=== PATIENT | male | born 1965 | race Caucasian/White ===

== ENCOUNTER 2017-01-05 06:30 | Day surgery (SDC) | payer OTHER ==
[~2017-01-05 06:30] MED LIST: Lactated Ringers 1,000 ML IV SCH; cefOXitin 2 GM in Premix Bag 1 BAG IV ONE
[2017-01-05] MEDS ORDERED: ceFAZolin 1 GM Vial ONE (07:17)
[2017-01-05] MEDS ORDERED: Bupivacaine 0.5% 10 ML SDV ONE (07:17)
--- NOTE | 2017-01-05 07:18 | PCM.PREANE ---
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 Respiratory: Reports: no symptoms Cardiovascular: Reports: no symptoms GI: Reports: no symptoms Other: Reports: none - PHYSICAL ASSESSMENT O2 Sat by Pulse Oximetry: 97 RR: 16 Vital Signs: Last Vital Signs Temp 36 C 01/05/17 06:40 Pulse 68 01/05/17 06:40 Resp 16 01/05/17 06:40 BP 119/75 01/05/17 06:40 Pulse Ox 97 01/05/17 06:40 Height: 1.75 m Weight: 72.575 kg ASA Class: 1 Mental Status: alert & oriented x3 Airway Class: Mallampati = 2 Dentition: Reports: normal dentition ROM/Head Extension: full Respiratory Status: lungs clear to auscultation bilaterally Cardiovascular Status: regular rate & rhythm, normal S1, S2, no murmur - ALLERGIES Allergies/Adverse Reactions: Allergies Allergy/AdvReac Type Severity Reaction Status Date / Time No Known Allergies Allergy Verified 12/26/16 21:20 - BLOOD Blood Available: No - ANESTHESIA PLAN Preop Beta Vivien: No Anesthesia Type Planned: general anesthesia - ACKNOWLEDGEMENTS Pt an appropriate candidate for the planned anesthesia: Yes Alternatives and risks of anesthesia discussed w pt/guardian: Yes Pt/Guardian understands and agree with anesthesia plan: Yes PreAnesthesia Questionnaire HEENT History: Reports: Impaired vision Other HEENT History: wears glasses Cardiovascular History: Reports: None Respiratory History: Reports: None Gastrointestinal History: Reports: None Genitourinary History: Reports: None Musculoskeletal History: Reports: None Neurological History: Reports: None Psychiatric History: Reports: None Endocrine/Metabolic History: Reports: None Hematologic History: Reports: None Immunologic History: Reports: None Oncologic (Cancer) History: Reports: None Dermatologic History: Reports: None - Infectious Disease History Infectious Disease History: Reports: Chicken pox, Measles, Mumps - Past Surgical History Head Surgeries/Procedures: Reports: None HEENT Surgical History: Reports: None Cardiovascular Surgical History: Reports: None Respiratory Surgical History: Reports: None GI Surgical History: Reports: None Male Surgical History: Reports: None Endocrine Surgical History: Reports: None Neurological Surgical History: Reports: C-Spine Other Neurological Surgeries/Procedures: anterior cervical disc fusion C4-C7 Musculoskeletal Surgical History: Reports: Other (see below) Other Musculoskeletal Surgeries/Procedures:: neck fusion C4-5-6-7 (ACDF) Oncologic Surgical History: Reports: None Dermatological Surgical History: Reports: None - SUBSTANCE USE Smoking Status *Q: Current Every Day Smoker Tobacco Use Within Last Twelve Months: Cigarettes Recreational Drug Use History: No - HOME MEDS Home Medications: Home Meds Multivitamin [Multivitamins] 1 tab PO DAILY 03/06/16 [History] Ondansetron HCl [Ondansetron] 4 mg PO ASDIRECTED PRN 12/31/16 [History] Ciprofloxacin HCl [Cipro] 500 mg PO BID 01/01/17 [History] Hydrocodone/Acetaminophen [Hydrocodon-Acetaminophen 5-325] 1 tab PO ASDIRECTED PRN 01/01/17 [History] - CURRENT (IN HOUSE) MEDS Current Meds: Current Medications Lactated Ringer's (Ringers, Lactated) 1,000 mls @ 125 mls/hr IV ASDIRECTED [facility] Last Admin: 01/05/17 06:42 Dose: 125 mls/hr Discontinued Medications Cefoxitin Sodium 2 gm/ Premix 50 mls @ 100 mls/hr IV ONETIME ONE Stop: 01/05/17 06:29
[2017-01-05] MEDS ORDERED: Lidocaine 2% 5 ML SDV ONE (07:25)
[2017-01-05] MEDS ORDERED: fentaNYL 250 MCG/5 ML SDV ONE (07:26)
[2017-01-05] MEDS ORDERED: Propofol 200 MG/20 ML SDV ONE ×2 (07:26→08:34)
[2017-01-05] MEDS ORDERED: fentaNYL 100 MCG/2 ML SDV ONE ×2 (07:26)
[2017-01-05] MEDS ORDERED: Midazolam 1 MG/ML 2 ML SDV ONE (07:26)
[2017-01-05] MEDS ORDERED: Neostigmine Methylsulfate 1 MG/ML 5 ML Syringe ONE (07:27)
[2017-01-05] MEDS ORDERED: Ondansetron 4 MG/2 ML SDV ONE (07:27)
[2017-01-05] MEDS ORDERED: Rocuronium 10 MG/ML 10 ML Syringe ONE (07:27)
[2017-01-05] MEDS ORDERED: Ketorolac 30 MG/ML SDV ONE (07:27)
[2017-01-05] MEDS ORDERED: HYDROmorphone 2 MG/ML Syringe IVPUSH ONE (08:30)
[2017-01-05] MEDS ORDERED: Acetaminophen/HYDROcodone 325-5 MG Tab PO PRN (09:14)
[2017-01-05] MEDS ORDERED: Morphine 10 MG/ML Syringe IVPUSH PRN (09:14)
[2017-01-05] MEDS ORDERED: Lactated Ringers 1,000 ML IV SCH (09:15)
--- NOTE | 2017-01-05 09:20 | PCM.OPNOTE ---
- General Post-Op/Procedure Note Date of Surgery/Procedure: 01/05/17 Operative Procedure(s): Laparoscopic cholecystectomy Pre Op Diagnosis: Symptomatic cholelithiasis Post-Op Diagnosis: Same Anesthesia Technique: General ET tube (ASA I) Primary Surgeon: Gamaliel Perez Drawer In Stitch Bonding Machine: Beba Chaves Fluid Replacement, Intraop: 1,300 EBL in mLs: 5 Condition: Good Free Text/Narrative:: Dictation [id number]
[2017-01-05] MEDS: fentaNYL 100 MCG/2 ML SDV IVPUSH PRN ×2 (10:00→10:05)
--- NOTE | 2017-01-05 10:13 | PCM.POSTAN ---
POST ANESTHESIA ASSESSMENT - MENTAL STATUS Mental Status: alert, oriented - RESPIRATORY Respiratory Status: respiratory rate WNL, airway patent - CARDIOVASCULAR CV Status: pulse rate WNL - GASTROINTESTINAL GI Status: no symptoms - POST OP HYDRATION Hydration Status: adequate & stable
--- NOTE | 2017-01-05 10:56 | PCM48HPAN ---
Post Anesthesia Note - EVALUATION WITHIN 48HRS OF ANESTHETIC Vital Signs in Normal Range: Yes Patient Participated in Evaluation: Yes Respiratory Function Stable: Yes Airway Patent: Yes Cardiovascular Function Stable: Yes Hydration Status Stable: Yes Pain Control Satisfactory: Yes Nausea and Vomiting Control Satisfactory: Yes Mental Status Recovered: Yes
[2017-01-05 11:03] VITALS: BP 128/76
--- NOTE | 2017-01-05 14:09 | OR ---
SURGEON: Gamaliel Perez M.D. DATE OF PROCEDURE: 01/05/2017 OPERATION PERFORMED: Laparoscopic cholecystectomy. STOCKROOM CLERK: press operator assistant: Dr. Chaves. ANESTHESIA: General endotracheal ASA CLASSIFICATION: I. PREOPERATIVE DIAGNOSIS: Symptomatic cholelithiasis. POSTOPERATIVE DIAGNOSIS: Symptomatic cholelithiasis. ESTIMATED BLOOD LOSS: 5 mL. INTRAOPERATIVE FLUID REPLACEMENT: 1300 mL of crystalloid. DESCRIPTION OF PROCEDURE: The patient was taken to the operating room and placed the on the operating table in the supine position. Time-out was called for appropriate identification of the patient and procedure. Thigh-high TEDs and sequential compression boots were placed. Following satisfactory attainment of general endotracheal anesthesia, a García catheter was placed in the patient's urinary bladder. The abdomen was prepped with DuraPrep solution and sterile drapes were applied. The skin just below the umbilicus was infiltrated with 0.5% Marcaine solution. The skin incision was made and deepened through the subcutaneous tissue, obtaining hemostasis with the use of electrocautery. The Veress needle was introduced into the peritoneal cavity. Saline drop test was positive. Carbon dioxide pneumoperitoneum was established with the relief set at 13 cm of water. Once a satisfactory pneumoperitoneum was established, 5 mm camera and port were placed through the infraumbilical incision. The patient was now positioned with his feet down and rolled to the left. Under camera vision, 12 mm subxiphoid, 5 mm midclavicular, and 5 mm anterior axillary ports were placed. Each incision had preemptively been infiltrated with 0.5% Marcaine solution. The gallbladder was grasped. Adhesions were taken down and cholecystohepatic triangle dissected free obtaining good critical view of both cystic artery and cystic duct. These structures were hemo-clipped and divided with the laparoscopic Metzenbaum scissor. The gallbladder was then dissected away from the bed using electrocautery. Once the gallbladder was amputated, this was placed in an Endopouch which was left in situ for later retrieval. The bed of the gallbladder was inspected. There was some minor oozing present and this was cauterized. No bile leak was noted. Surgicel was placed into the bed of the gallbladder, after the irrigant had been aspirated. The right hemidiaphragm was then irrigated with 250 mL of saline with 20 mL of 0.5% Marcaine solution. Following that the 12 mm subxiphoid and Endopouch containing gallbladder were removed. Under camera vision, 5 mm midclavicular and anterior axillary ports were also removed. The wounds were inspected for hemostasis and small bleeding sites were electrocoagulated. The subxiphoid and infraumbilical incisions were closed in 2 layers approximating the subcutaneous tissue with 3-0 Polysorb and then the skin with subcuticular 4-0 Monocryl. The anterior, axillary, and midclavicular incisions were closed with subcuticular 4-0 Monocryl. All incisions were Steri-Stripped and dressed with sterile Tegaderm pads. Sponge, needle, and instrument counts were all correct. The García catheter was removed prior to emergence from anesthesia. Following emergence from anesthesia and extubation, the patient was taken to recovery room in stable condition. STERLING MCMILLAN /[id number]
== END 2017-01-05 11:14 | disposition home or self-care (01) ==
LOC: MW.SDS 06:30
PROVIDERS: ATTEND Surgery
PROC: 0FT44ZZ Resection of Gallbladder, Percutaneous Endoscopic Approach (ICD-10-PCS; principal; 2017-01-05)
DX: K80.10 Calculus of gallbladder with chronic cholecystitis without obstruction (principal); F17.210 Nicotine dependence, cigarettes, uncomplicated; Z98.1 Arthrodesis status; Z98.890 Other specified postprocedural states; Z79.899 Other long term (current) drug therapy
CPT/HCPCS: 47562; 88304; J1885; J2250; J2405; J2710; J3010; J7120; 00790; J0690; J2704

== ENCOUNTER 2017-01-07 20:18 | Observation (INO) | payer OTHER ==
[2017-01-07] MEDS ORDERED: Morphine 2 MG/ML Syringe IVPUSH ONE (20:24)
[2017-01-07] MEDS ORDERED: Sodium Chloride 0.9% 10 ML Syringe FLUSH PRN (20:24)
[2017-01-07] MEDS ORDERED: Sodium Chloride 0.9% 1,000 ML IV ONE (20:24)
[2017-01-07] MEDS ORDERED: Ondansetron 4 MG/2 ML SDV IVPUSH ONE (20:24)
[2017-01-07] MEDS ORDERED: Sodium Chloride 0.9% 2.5 ML Syringe FLUSH PRN (20:24)
--- NOTE | 2017-01-07 20:28 | EDM.PDOC ---
<Miriam Farris - Last Filed: 01/07/17 22:01> ED HPI GI/ABDOMINAL - General Chief Complaint: Abdominal Pain Stated Complaint: HAD GALLBLADDER SURGERY/PAIN Time Seen by Provider: 01/07/17 20:20 Source of Information: Reports: Patient, Family History Limitations: Reports: No limitations - History of Present Illness INITIAL COMMENTS - FREE TEXT/NARRATIVE: HISTORY AND PHYSICAL: History of present illness: [Brought to the emergency room by his with complaints of upper abdominal pain. Had a cholecystectomy on January [address] Perez. Surgery went well. Patient had been recovering well at home when pain in epigastric area began suddenly 45 minutes prior to ER arrival. At home patient complained of radiation of this pain into his right shoulder and right upper back. He has not had fever or chills. Denies chest pain, shortness of breath and difficulty breathing. Has had 3 bowel movements since surgery on Thursday which have been normal. Has had no difficulty with urination. Has been eating a bland diet and gradually increasing as tolerated. Tonight he felt well and ate some fried chicken for supper.] Review of systems: As per history of present illness and below otherwise all systems reviewed and negative. Past medical history: As per history of present illness and as reviewed below otherwise noncontributory. Surgical history: As per history of present illness and as reviewed below otherwise noncontributory. Social history: No reported history of drug or alcohol abuse. Family history: As per history of present illness and as reviewed below otherwise noncontributory. Physical exam: General: Well-developed well-nourished male in severe pain. He is diaphoretic. HEENT: Atraumatic, normocephalic. negative for conjunctival pallor or scleral icterus. mucous membranes moist, throat clear. Lungs: Clear to auscultation, breath sounds equal bilaterally. Heart: S1S2, regular rate and rhythm. negative for clicks, rubs, or JVD. Abdomen: Surgical incisions and dressings to abdomen consistent with cholecystectomy. Abdomen is soft and nondistended. He is exquisitely tender over the epigastric area. No masses are appreciated. No guarding or rebound. Pelvis: Stable nontender. Genitourinary: Deferred. Rectal: Deferred. Extremities: Atraumatic without deformity. Neurovascular unremarkable. Neuro: Awake, alert, oriented. Motor and sensory unremarkable throughout. Exam nonfocal. Diagnostics: [CBC, CMP, lipase, amylase, urinalysis, chest x-ray, troponin, EKG, abdominal ultrasound, abdominal x-ray] Therapeutics: [1 L normal saline, 4 mg morphine, Zofran 4 mg IV, Toradol 30mg IV] Impression: [Epigastric abdominal pain.] Plan: [Dr. Perez was contacted at 9:55 PM. He requests an abdominal x-ray, and states that he will be in to see the patient shortly.] Definitive disposition and diagnosis as appropriate pending reevaluation and review of above. - Related Data Allergies/ADRs: Allergies Allergy/AdvReac Type Severity Reaction Status Date / Time No Known Allergies Allergy Verified 01/07/17 20:35 Home Meds: Home Meds Multivitamin [Multivitamins] 1 tab PO DAILY 03/06/16 [History] Ondansetron HCl [Ondansetron] 4 mg PO ASDIRECTED PRN 12/31/16 [History] Ciprofloxacin HCl [Cipro] 500 mg PO BID 01/01/17 [History] Hydrocodone/Acetaminophen [Hydrocodon-Acetaminophen 5-325] 1 tab PO ASDIRECTED PRN 01/01/17 [History] Past Medical History HEENT History: Reports: Impaired vision Other HEENT History: wears glasses Cardiovascular History: Reports: None Respiratory History: Reports: None Gastrointestinal History: Reports: None Genitourinary History: Reports: None Musculoskeletal History: Reports: None Neurological History: Reports: None Psychiatric History: Reports: None Endocrine/Metabolic History: Reports: None Hematologic History: Reports: None Immunologic History: Reports: None Oncologic (Cancer) History: Reports: None Dermatologic History: Reports: None - Infectious Disease History Infectious Disease History: Reports: Chicken pox, Measles, Mumps - Past Surgical History Head Surgeries/Procedures: Reports: None HEENT Surgical History: Reports: None Cardiovascular Surgical History: Reports: None Respiratory Surgical History: Reports: None GI Surgical History: Reports: None Male Surgical History: Reports: None Endocrine Surgical History: Reports: None Neurological Surgical History: Reports: C-Spine Other Neurological Surgeries/Procedures: anterior cervical disc fusion C4-C7 Musculoskeletal Surgical History: Reports: Other (see below) Other Musculoskeletal Surgeries/Procedures:: neck fusion C4-5-6-7 (ACDF) Oncologic Surgical History: Reports: None Dermatological Surgical History: Reports: None Social & Family History - Family History Family Medical History: Noncontributory - Tobacco Use Smoking Status *Q: Current Every Day Smoker Years of Tobacco use: 30 Packs/Tins Daily: 1.5 Month Tobacco Last Used: smokes 1 1/2 pk of cigarettes per day - Recreational Drug Use Recreational Drug Use: No Drug Use in Last 12 Months: No Course - Vital Signs Last Recorded V/S: Last Vital Signs Temp 36.4 C 01/07/17 20:37 Pulse 60 01/07/17 21:52 Resp 16 01/07/17 21:52 BP 154/90 H 01/07/17 21:52 Pulse Ox 98 01/07/17 21:52 - Orders/Labs/Meds Orders: Active Orders 24 hr Category Date Time Status EKG Documentation Completion [RC] STAT Care 01/07/17 20:24 Active Abdomen 2V AP Flat Upright [CR] Stat Exams 01/07/17 21:57 Taken Abdomen Ltd [US] Stat Exams 01/07/17 20:26 Taken Chest 2V [CR] Stat Exams 01/07/17 20:28 Taken UA W/MICROSCOPIC [URIN] Stat Lab 01/07/17 20:24 Uncollected Sodium Chloride 0.9% [Saline Flush] Med 01/07/17 20:24 Active 10 ml FLUSH ASDIRECTED PRN Sodium Chloride 0.9% [Saline Flush] Med 01/07/17 20:24 Active 2.5 ml FLUSH ASDIRECTED PRN Saline Lock Insert [OM.PC] Stat Oth 01/07/17 20:24 Ordered Medication Orders Sodium Chloride (Saline Flush) 10 ml FLUSH ASDIRECTED PRN PRN Reason: Keep Vein Open Sodium Chloride (Saline Flush) 2.5 ml FLUSH ASDIRECTED PRN PRN Reason: Keep Vein Open Labs: Laboratory Tests 01/07/17 01/07/17 01/07/17 Range/Units 20:32 20:32 20:32 WBC 8.95 (4.0-11.0) K/uL RBC 4.89 (4.50-5.90) M/uL Hgb 15.5 (13.0-17.0) g/dL Hct 45.6 (38.0-50.0) % MCV 93.3 (80.0-98.0) fL MCH 31.7 (27.0-32.0) pg MCHC 34.0 (31.0-37.0) g/dL RDW Std Deviation 43.1 (28.0-62.0) fl RDW Coeff of [place] 13 (11.0-15.0) % Plt Count 183 (150-400) K/uL MPV 11.70 (7.40-12.00) fL Neut % (Auto) 50.7 (48.0-80.0) % Lymph % (Auto) 42.5 H (16.0-40.0) % [place] % (Auto) 5.6 (0.0-15.0) % Eos % (Auto) 1.1 (0.0-7.0) % Baso % (Auto) 0.1 (0.0-1.5) % Neut # 4.5 (1.4-5.7) K/uL Lymph # 3.8 H (0.6-2.4) K/uL [place] # 0.5 (0.0-0.8) K/uL Eos # 0.1 (0.0-0.7) K/uL Baso # 0.0 (0.0-0.1) K/uL Nucleated RBC % 0.0 /100WBC Nucleated RBCs # 0 K/uL Sodium 143 (136-146) mmol/L Potassium 4.1 (3.5-5.1) mmol/L Chloride 106 (98-110) mmol/L Carbon Dioxide 26 (21-31) mmol/L BUN 14 (6.0-23.0) mg/dL Creatinine 1.0 (0.6-1.5) mg/dL Est Cr Clr Drug Dosing TNP Estimated GFR (MDRD) > 60.0 ml/min Glucose 109 (60-110) mg/dL Calcium 9.1 (8.8-10.8) mg/dL Total Bilirubin 0.3 (0.1-1.5) mg/dL AST 52 H (5-40) IU/L ALT 82 H (8-54) IU/L Alkaline Phosphatase 53 (40-150) Troponin I < 0.10 (0.0-0.29) NG/ML Total Protein 7.8 (6.0-8.0) g/dL Albumin 4.2 (3.5-5.0) g/dL Globulin 3.6 H (2.0-3.5) g/dL Albumin/Globulin Ratio 1.2 L (1.3-2.8) Amylase 69 (10-90) U/L Lipase 28 (7-80) U/L Meds: Medications Generic Name Dose Route Start Last Admin Trade Name Coy PRN Reason Stop Dose Admin Sodium Chloride 10 ml 01/07/17 20:24 Saline Flush FLUSH ASDIRECTED PRN Keep Vein Open Sodium Chloride 2.5 ml 01/07/17 20:24 Saline Flush FLUSH ASDIRECTED PRN Keep Vein Open Discontinued Medications Generic Name Dose Route Start Last Admin Trade Name Coy PRN Reason Stop Dose Admin Hydromorphone HCl 1 mg 01/07/17 22:28 Dilaudid IVPUSH 01/07/17 22:29 ONETIME ONE Sodium Chloride 1,000 mls @ 999 mls/hr 01/07/17 20:24 01/07/17 20:28 Normal Saline IV 01/07/17 21:24 999 mls/hr STAT ONE Administration Ketorolac Tromethamine 30 mg 01/07/17 20:57 01/07/17 21:01 Toradol IVPUSH 01/07/17 20:58 30 mg ONETIME ONE Administration Morphine Sulfate 4 mg 01/07/17 20:24 01/07/17 20:29 Morphine IVPUSH 01/07/17 20:25 4 mg ONETIME ONE Administration Ondansetron HCl 4 mg 01/07/17 20:24 01/07/17 20:31 Zofran IVPUSH 01/07/17 20:25 4 mg ONETIME ONE Administration Departure - Departure Disposition: Admitted As Inpatient 65 Clinical Impression: Abdominal pain Forms: ED Department Discharge <Cy Dyson - Last Filed: 01/07/17 22:31> ED ROS GENERAL - Review of Systems Review Of Systems: ROS reveals no pertinent complaints other than HPI. ED EXAM, GI/ABD - Physical Exam Exam: See Below (See dictated) Departure - Departure Time of Disposition: 22:31 Condition: good
[2017-01-07] MEDS ORDERED: Ketorolac 30 MG/ML SDV IVPUSH ONE (20:57)
[2017-01-07 21:05] LABS: CHLORIDE,CL 106 mmol/L (98-110); SODIUM,NA 143 mmol/L (136-146)
[2017-01-07] MEDS ORDERED: HYDROmorphone 1 MG/ML Syringe IVPUSH ONE (22:28)
[2017-01-07] MEDS ORDERED: Acetaminophen 325 MG Tab PO PRN (22:35)
[2017-01-07] MEDS ORDERED: Acetaminophen/HYDROcodone 325-5 MG Tab PO PRN (22:35)
[2017-01-07] MEDS ORDERED: Ondansetron 4 MG/2 ML SDV IVPUSH PRN (22:35)
[2017-01-07] MEDS ORDERED: Pantoprazole 40 MG in Sodium Chloride 0.9% 10 ML IVPUSH SCH (22:45)
[2017-01-07] MEDS ORDERED: Morphine PF 30 MG/30 ML PCA Vial IV SCH (22:45)
--- NOTE | 2017-01-07 22:46 | PCM.HP ---
H&P History of Present Illness - General Date of Service: 01/07/17 Admit Problem/Dx: Admission Diagnosis/Problem Admission Diagnosis/Problem Abdominal pain Source of Information: Patient, Family History Limitations: Reports: Other (abdominal pain) - History of Present Illness Initial Comments - Free Text/Narative: patient is a 51-year-old gentleman, who underwent an elective laparoscopic cholecystectomy 48 hours ago. About 2:00 today he did need some fried chicken although reportedly took the skin off. Following that he developed severe epigastric pain. This was so severe that he required EMS transfer to the hospital for evaluation. He was initially evaluated in the emergency room by Dr. Dyson, and Miriam Farris. Workup so far has not revealed any biochemical or hematologic abnormalities. He has only partially responded to pain medication to include Toradol and morphine. Onset of Symptoms: Reports: today Symptom Onset Time: 14:00 Duration of Symptoms: Reports: Hour(s): Location: Reports: abdomen Quality: Reports: Pressure, Sharp, Stabbing Severity: severe Improves with: Reports: None Worsens with: Reports: None Context: Reports: sick contact Associated Symptoms: Reports: diaphoresis, loss of appetite. Denies: confusion , chest pain, fever/chills, nausea/vomiting Abdominal Pain Score (Numeric/FACES): 10 - Related Data Allergies/Adverse Reactions: Allergies Allergy/AdvReac Type Severity Reaction Status Date / Time No Known Allergies Allergy Verified 01/07/17 20:35 Home Medications: Home Meds Multivitamin [Multivitamins] 1 tab PO DAILY 03/06/16 [History] Ondansetron HCl [Ondansetron] 4 mg PO ASDIRECTED PRN 12/31/16 [History] Ciprofloxacin HCl [Cipro] 500 mg PO BID 01/01/17 [History] Hydrocodone/Acetaminophen [Hydrocodon-Acetaminophen 5-325] 1 tab PO ASDIRECTED PRN 01/01/17 [History] Past Medical History HEENT History: Reports: Impaired vision Other HEENT History: wears glasses Cardiovascular History: Reports: None Respiratory History: Reports: None Gastrointestinal History: Reports: None Genitourinary History: Reports: None Musculoskeletal History: Reports: None Neurological History: Reports: None Psychiatric History: Reports: None Endocrine/Metabolic History: Reports: None Hematologic History: Reports: None Immunologic History: Reports: None Oncologic (Cancer) History: Reports: None Dermatologic History: Reports: None - Infectious Disease History Infectious Disease History: Reports: Chicken pox, Measles, Mumps - Past Surgical History Head Surgeries/Procedures: Reports: None HEENT Surgical History: Reports: None Cardiovascular Surgical History: Reports: None Respiratory Surgical History: Reports: None GI Surgical History: Reports: None Male Surgical History: Reports: None Endocrine Surgical History: Reports: None Neurological Surgical History: Reports: C-Spine Other Neurological Surgeries/Procedures: anterior cervical disc fusion C4-C7 Musculoskeletal Surgical History: Reports: Other (see below) Other Musculoskeletal Surgeries/Procedures:: neck fusion C4-5-6-7 (ACDF) Oncologic Surgical History: Reports: None Dermatological Surgical History: Reports: None Social & Family History - Family History Family Medical History: Noncontributory - Tobacco Use Smoking Status *Q: Current Every Day Smoker Years of Tobacco use: 30 Packs/Tins Daily: 1.5 Month Tobacco Last Used: smokes 1 1/2 pk of cigarettes per day - Recreational Drug Use Recreational Drug Use: No Drug Use in Last 12 Months: No H&P Review of Systems - Review of Systems: Review Of Systems: See Below General: Reports: diaphoresis, decreased appetite. Denies: fever, chills, malaise, weight loss, weight gain HEENT: Reports: no symptoms Pulmonary: Denies: shortness of breath, wheezing, cough Cardiovascular: Denies: chest pain, palpitations Gastrointestinal: Reports: Abdominal pain (primarily epigastric), Decreased appetite, Distension, Flatus, Nausea. Denies: Black stool, Bloody stool, Constipation, Diarrhea, Hematemesis, Hematochezia, Melena, Vomiting Genitourinary: Reports: no symptoms Musculoskeletal: Reports: no symptoms Skin: Reports: diaphoresis. Denies: jaundice, mottled, pallor Psychiatric: Reports: no symptoms Neurological: Reports: no symptoms Hematologic/Lymphatic: Reports: no symptoms Immunologic: Reports: no symptoms Exam - Exam Exam: See Below - Vital Signs Vital Signs: Last Vital Signs Temp 97.5 F 01/07/17 20:37 Pulse 60 01/07/17 21:52 Resp 16 01/07/17 21:52 BP 154/90 H 01/07/17 21:52 Pulse Ox 98 01/07/17 21:52 Weight: 155 lb - Exam Quality Assessment: supplemental oxygen General: alert, oriented, cooperative, moderate distress HEENT: Conjunctiva clear, EACs clear, EOMI. No: Scleral icterus Neck: supple, trachea midline Lungs: Clear to auscultation, Normal respiratory effort Cardiovascular: regular rate, regular rhythm. No: tachycardia, systolic murmur , diastolic murmur Abdomen: normal bowel sounds, soft, distention, guarding, tenderness (primarily epigastric). No: peritoneal signs, rigidity, rebound (Male) Exam: No hernia, Deferred Rectal (Males) Exam: Deferred Back Exam: normal inspection Extremities: normal inspection, normal pulses Skin: warm, dry, intact Neurological: cranial nerves intact Neuro Extensive - Mental Status: alert, oriented x3 Psychiatric: alert, normal affect, anxious - Patient Data Lab Results last 24 hrs: Laboratory Results - last 24 hr 01/07/17 01/07/17 01/07/17 Range/Units 20:32 20:32 20:32 WBC 8.95 (4.0-11.0) K/uL RBC 4.89 (4.50-5.90) M/uL Hgb 15.5 (13.0-17.0) g/dL Hct 45.6 (38.0-50.0) % MCV 93.3 (80.0-98.0) fL MCH 31.7 (27.0-32.0) pg MCHC 34.0 (31.0-37.0) g/dL RDW Std Deviation 43.1 (28.0-62.0) fl RDW Coeff of Rock 13 (11.0-15.0) % Plt Count 183 (150-400) K/uL MPV 11.70 (7.40-12.00) fL Neut % (Auto) 50.7 (48.0-80.0) % Lymph % (Auto) 42.5 H (16.0-40.0) % Grainger % (Auto) 5.6 (0.0-15.0) % Eos % (Auto) 1.1 (0.0-7.0) % Baso % (Auto) 0.1 (0.0-1.5) % Neut # 4.5 (1.4-5.7) K/uL Lymph # 3.8 H (0.6-2.4) K/uL Grainger # 0.5 (0.0-0.8) K/uL Eos # 0.1 (0.0-0.7) K/uL Baso # 0.0 (0.0-0.1) K/uL Nucleated RBC % 0.0 /100WBC Nucleated RBCs # 0 K/uL Sodium 143 (136-146) mmol/L Potassium 4.1 (3.5-5.1) mmol/L Chloride 106 (98-110) mmol/L Carbon Dioxide 26 (21-31) mmol/L BUN 14 (6.0-23.0) mg/dL Creatinine 1.0 (0.6-1.5) mg/dL Est Cr Clr Drug Dosing TNP Estimated GFR (MDRD) > 60.0 ml/min Glucose 109 (60-110) mg/dL Calcium 9.1 (8.8-10.8) mg/dL Total Bilirubin 0.3 (0.1-1.5) mg/dL AST 52 H (5-40) IU/L ALT 82 H (8-54) IU/L Alkaline Phosphatase 53 (40-150) Troponin I < 0.10 (0.0-0.29) NG/ML Total Protein 7.8 (6.0-8.0) g/dL Albumin 4.2 (3.5-5.0) g/dL Globulin 3.6 H (2.0-3.5) g/dL Albumin/Globulin Ratio 1.2 L (1.3-2.8) Amylase 69 (10-90) U/L Lipase 28 (7-80) U/L Result Diagrams: 01/07/17 20:32 01/07/17 20:32 Imaging Impressions last 24 hrs: Abdominal films do show a mildly dilated cecum and ascending colon. I do not see any pneumoperitoneum. There is air scattered throughout the colon and small bowel. There is no large gastric bubble. *Q Meaningful Use (ADM) - VTE *Q VTE Criteria *Q: - Stroke *Q Stroke Criteria *Q: - AMI *Q AMI Criteria *Q: - Problem List (1) Abdominal pain SNOMED Code(s): 05711016 ICD Code: R10.9 - UNSPECIFIED ABDOMINAL PAIN Status: Acute Priority: High Current Visit: Yes Qualifiers: Abdominal location: epigastric Qualified Code(s): R10.13 - Epigastric pain Problem List Initiated/Reviewed/Updated: Yes Orders Last 24hrs: Active Orders 24 hr Category Date Time Status Admission Status [Patient Status] [ADT] Routine ADT 01/07/17 22:34 Active Antiembolic Devices [RC] PER UNIT ROUTINE Care 01/07/17 22:36 Active EKG Documentation Completion [RC] STAT Care 01/07/17 20:24 Active Intake and Output [RC] QSHIFT Care 01/07/17 22:34 Active Oxygen Therapy [RC] PRN Care 01/07/17 22:34 Active Pulse Oximetry [RC] INTERMITTENT Care 01/07/17 22:34 Active Up ad Sharlene [RC] PER UNIT ROUTINE Care 01/07/17 22:34 Active Vital Signs [RC] PER UNIT ROUTINE Care 01/07/17 22:34 Active Full Liquid Diet [DIET] Diet 01/08/17 Breakfast Active Abdomen 2V AP Flat Upright [CR] Stat Exams 01/07/17 21:57 Taken Abdomen Ltd [US] Stat Exams 01/07/17 20:26 Taken Chest 2V [CR] Stat Exams 01/07/17 20:28 Taken BASIC METABOLIC PANEL,BMP [CHEM] AM Lab 01/08/17 05:11 Ordered CBC WITH AUTO DIFF [HEME] AM Lab 01/08/17 05:11 Ordered HEPATIC FUNCTION PANEL,HFP [CHEM] AM Lab 01/08/17 05:11 Ordered UA W/MICROSCOPIC [URIN] Stat Lab 01/07/17 20:24 Uncollected Acetaminophen [Tylenol] Med 01/07/17 22:35 Ordered 325 mg PO Q4H PRN Acetaminophen/HYDROcodone [[place] 325-5 MG] Med 01/07/17 22:35 Ordered 1 - 2 tab PO Q4H PRN Lactated Ringers [Ringers, Lactated] 1,000 ml Med 01/07/17 22:45 Ordered IV ASDIRECTED Metoclopramide [Reglan] Med 01/07/17 22:45 Ordered 10 mg IV Q6H Morphine PF [Morphine IRRIGATION EQUIPMENT INSTALLER 30 MG in 30 ML] Med 01/07/17 22:45 Ordered 30 mg IV SEECOMMENT Ondansetron [Zofran] Med 01/07/17 22:35 Ordered 4 mg IVPUSH Q6H PRN Pantoprazole [Protonix IV] 40 mg Med 01/07/17 22:45 Ordered Sodium Chloride 0.9% [Normal Saline] 10 ml IVPUSH Q24H Sodium Chloride 0.9% [Saline Flush] Med 01/07/17 20:24 Active 10 ml FLUSH ASDIRECTED PRN Sodium Chloride 0.9% [Saline Flush] Med 01/07/17 20:24 Active 2.5 ml FLUSH ASDIRECTED PRN Sucralfate [Carafate] Med 01/07/17 22:45 Ordered 1 gm PO Q6H Antiembolic Hose [OM.PC] PER UNIT ROUTINE Oth 01/07/17 06:00 Ordered Antiembolic Hose [OM.PC] PER UNIT ROUTINE Oth 01/08/17 06:00 Ordered Saline Lock Insert [OM.PC] Stat Oth 01/07/17 20:24 Ordered Sequential Compression Device [OM.PC] Routine Oth 01/07/17 22:34 Ordered Resuscitation Status Routine Resus Stat 01/07/17 22:34 Ordered Medication Orders Acetaminophen (Tylenol) 325 mg PO Q4H PRN PRN Reason: Fever Greater Than 101 Acetaminophen/Hydrocodone Bitart ([place] 325-5 Mg) 1 - 2 tab PO Q4H PRN PRN Reason: Pain (moderate 4-6) Lactated Ringer's (Ringers, Lactated) 1,000 mls @ 125 mls/hr IV ASDIRECTED DIAMANTE Pantoprazole Sodium 40 mg/ (Sodium Chloride) 10 mls @ 300 mls/hr IVPUSH Q24H DIAMANTE Metoclopramide HCl (Reglan) 10 mg IV Q6H DIAMANTE Morphine Sulfate (Morphine Continuous Mining Machine Lode Miner 30 Mg In 30 Ml) 30 mg IV SEECOMMENT DIAMANTE Ondansetron HCl (Zofran) 4 mg IVPUSH Q6H PRN PRN Reason: Nausea/Vomiting Sodium Chloride (Saline Flush) 10 ml FLUSH ASDIRECTED PRN PRN Reason: Keep Vein Open Sodium Chloride (Saline Flush) 2.5 ml FLUSH ASDIRECTED PRN PRN Reason: Keep Vein Open Sucralfate (Carafate) 1 gm PO Q6H [facility] Assessment/Plan Comment:: Patient is going to be admitted to observation for pain management. We will start him on Carafate and Protonix. Morphine IRRIGATION EQUIPMENT INSTALLER has been ordered. Patient will also be allowed a full liquid diet and oral analgesics. Laboratory studies have been ordered for morning.
[2017-01-07] MEDS: Metoclopramide 10 MG/2 ML SDV IV SCH (23:37)
[2017-01-07] MEDS: Lactated Ringers 1,000 ML IV SCH (23:53)
[2017-01-08] MEDS: Sucralfate Suspension 1 GM/10 ML Cup PO SCH ×3 (00:15→12:24)
[2017-01-08] MEDS ORDERED: HYDROmorphone 1 MG/ML Syringe IVPUSH ONE ×2 (01:45→12:02)
[2017-01-08] MEDS ORDERED: Ketorolac 30 MG/ML SDV IVPUSH ONE (02:15)
[2017-01-08] MEDS ORDERED: Iopamidol 755 MG/ML 500 ML Multipack Bottle IVPUSH STA (03:00)
[2017-01-08] MEDS ORDERED: cloNIDine 0.1 MG Tab PO ONE (03:05)
[2017-01-08 03:23] LABS: CHLORIDE,CL 106 mmol/L (98-110); SODIUM,NA 141 mmol/L (136-146)
[2017-01-08] MEDS ORDERED: Morphine PF 30 MG/30 ML PCA Vial IV SCH (04:00)
[2017-01-08] MEDS: Piperacillin/Tazobactam 4.5 GM in Sodium Chloride 0.9% 100 ML IV SCH ×2 (04:45→11:47)
[2017-01-08] MEDS: Metoclopramide 10 MG/2 ML SDV IV SCH ×2 (04:46→11:47)
[2017-01-08 07:07] LABS: CHLORIDE,CL 105 mmol/L (98-110); SODIUM,NA 139 mmol/L (136-146)
--- NOTE | 2017-01-08 07:35 | PCM.SN ---
- Free Text/Narrative Note: Events of past few hours reviewed. Appreciate Dr. Shipman' consult. Suspect small ble leak from GB bed. Will get HIDA today. If bile leak confirmed, patient will need ERCP with stent placement.
[2017-01-08] MEDS: Lactated Ringers 1,000 ML IV SCH (10:08)
[2017-01-08] MEDS ORDERED: Morphine 4 MG/ML Syringe IVPUSH ONE (11:57)
[2017-01-08] MEDS ORDERED: Acetaminophen 650 MG in Premix Bag 1 BAG IV SCH (12:15)
[2017-01-08 13:23] VITALS: BP 144/77
--- NOTE | 2017-01-08 13:42 | PCM.SURGPN ---
- General Info Date of Service: 01/08/17 POD#: 3 Post-Op Diagnosis: Cholelithiasis w/ cholecystitis. PO bile leak. Functional Status: Reports: ambulating, urinating (in small amounts only) - Review of Systems General: Reports: night sweats. Denies: fever, appetite HEENT: Reports: no symptoms Pulmonary: Reports: shortness of breath Cardiovascular: Reports: chest pain. Denies: palpitations Gastrointestinal: Reports: Abdominal pain, Decreased appetite, Flatus, Nausea. Denies: Vomiting Genitourinary: Reports: frequency. Denies: incontinence Musculoskeletal: Reports: shoulder pain Skin: Denies: jaundice Neurological: Denies: confusion, dizziness, headache Psychiatric: Reports: anxiety - Patient Data Vitals - most recent: Last Vital Signs Temp 97.6 F 01/08/17 12:00 Pulse 80 01/08/17 12:00 Resp 22 H 01/08/17 12:00 BP 144/77 H 01/08/17 12:00 Pulse Ox 90 L 01/08/17 12:00 Weight - most recent: 160 lb I&O - last 24 hours: Intake & Output 01/08/17 01/08/17 01/08/17 03:59 11:59 19:59 Intake Total 1210 Balance 1210 Lab Results last 24 hrs: Laboratory Results - last 24 hr 01/07/17 01/08/17 01/08/17 Range/Units 22:58 02:55 02:55 WBC 13.06 H (4.0-11.0) K/uL RBC 4.67 (4.50-5.90) M/uL Hgb 14.8 (13.0-17.0) g/dL Hct 43.9 (38.0-50.0) % MCV 94.0 (80.0-98.0) fL MCH 31.7 (27.0-32.0) pg MCHC 33.7 (31.0-37.0) g/dL RDW Std Deviation 40.8 (28.0-62.0) fl RDW Coeff of Rock 12 (11.0-15.0) % Plt Count 132 L (150-400) K/uL MPV 10.90 (7.40-12.00) fL Neut % (Auto) 82.4 H (48.0-80.0) % Lymph % (Auto) 11.3 L (16.0-40.0) % Tama % (Auto) 6.0 (0.0-15.0) % Eos % (Auto) 0.2 (0.0-7.0) % Baso % (Auto) 0.1 (0.0-1.5) % Neut # 10.8 H (1.4-5.7) K/uL Lymph # 1.5 (0.6-2.4) K/uL Tama # 0.8 (0.0-0.8) K/uL Eos # 0.0 (0.0-0.7) K/uL Baso # 0.0 (0.0-0.1) K/uL Nucleated RBC % /100WBC Nucleated RBCs # K/uL ESR (0-19) mm/hr Lactate (0.20-2.00) mmol/L Sodium 141 (136-146) mmol/L Potassium 3.9 (3.5-5.1) mmol/L Chloride 106 (98-110) mmol/L Carbon Dioxide 25 (21-31) mmol/L BUN 15 (6.0-23.0) mg/dL Creatinine 0.8 (0.6-1.5) mg/dL Est Cr Clr Drug Dosing 108.01 mL/min Estimated GFR (MDRD) > 60.0 ml/min Glucose 134 H (60-110) mg/dL Calcium 8.8 (8.8-10.8) mg/dL Total Bilirubin 0.7 (0.1-1.5) mg/dL Direct Bilirubin (0.0-0.5) mg/dL AST 135 H (5-40) IU/L ALT 126 H (8-54) IU/L Alkaline Phosphatase 54 (40-150) Troponin I (0.0-0.29) NG/ML Total Protein 7.4 (6.0-8.0) g/dL Albumin 4.1 (3.5-5.0) g/dL Globulin 3.3 (2.0-3.5) g/dL Albumin/Globulin Ratio 1.2 L (1.3-2.8) Amylase 49 (10-90) U/L Lipase 17 (7-80) U/L Urine Color YELLOW Urine Appearance CLEAR Urine pH 6.5 (5.0-8.0) Ur Specific [place] 1.025 (1.001-1.035) Urine Protein NEGATIVE (NEGATIVE) mg/dL Urine Glucose (UA) NEGATIVE (NEGATIVE) mg/dL Urine Ketones NEGATIVE (NEGATIVE) mg/dL Urine Occult Blood NEGATIVE (NEGATIVE) Urine Nitrite NEGATIVE (NEGATIVE) Urine Bilirubin NEGATIVE (NEGATIVE) Urine Urobilinogen 0.2 (<2.0) EU/dL Ur Leukocyte Esterase NEGATIVE (NEGATIVE) Urine RBC 0-2 (0-2/HPF) Urine WBC 0-2 (0-5/HPF) Ur Epithelial Cells RARE (NONE-FEW) Urine Bacteria RARE (NEGATIVE) Urine Mucus LIGHT (NONE-MOD) 01/08/17 01/08/17 01/08/17 Range/Units 02:55 04:53 04:53 WBC 13.68 H (4.0-11.0) K/uL RBC 4.79 (4.50-5.90) M/uL Hgb 15.3 (13.0-17.0) g/dL Hct 44.3 (38.0-50.0) % MCV 92.5 (80.0-98.0) fL MCH 31.9 (27.0-32.0) pg MCHC 34.5 (31.0-37.0) g/dL RDW Std Deviation 42.6 (28.0-62.0) fl RDW Coeff of Rock 13 (11.0-15.0) % Plt Count 152 (150-400) K/uL MPV 12.10 H (7.40-12.00) fL Neut % (Auto) 85.4 H (48.0-80.0) % Lymph % (Auto) 8.4 L (16.0-40.0) % Tama % (Auto) 6.0 (0.0-15.0) % Eos % (Auto) 0.1 (0.0-7.0) % Baso % (Auto) 0.1 (0.0-1.5) % Neut # 11.7 H (1.4-5.7) K/uL Lymph # 1.2 (0.6-2.4) K/uL Tama # 0.8 (0.0-0.8) K/uL Eos # 0.0 (0.0-0.7) K/uL Baso # 0.0 (0.0-0.1) K/uL Nucleated RBC % 0.0 /100WBC Nucleated RBCs # 0 K/uL ESR (0-19) mm/hr Lactate (0.20-2.00) mmol/L Sodium 139 (136-146) mmol/L Potassium 4.2 (3.5-5.1) mmol/L Chloride 105 (98-110) mmol/L Carbon Dioxide 22 (21-31) mmol/L BUN 12 (6.0-23.0) mg/dL Creatinine 0.7 (0.6-1.5) mg/dL Est Cr Clr Drug Dosing 123.44 mL/min Estimated GFR (MDRD) > 60.0 ml/min Glucose 112 H (60-110) mg/dL Calcium 9.0 (8.8-10.8) mg/dL Total Bilirubin (0.1-1.5) mg/dL Direct Bilirubin (0.0-0.5) mg/dL AST (5-40) IU/L ALT (8-54) IU/L Alkaline Phosphatase (40-150) Troponin I < 0.10 (0.0-0.29) NG/ML Total Protein (6.0-8.0) g/dL Albumin (3.5-5.0) g/dL Globulin (2.0-3.5) g/dL Albumin/Globulin Ratio (1.3-2.8) Amylase (10-90) U/L Lipase (7-80) U/L Urine Color Urine Appearance Urine pH (5.0-8.0) Ur Specific [place] (1.001-1.035) Urine Protein (NEGATIVE) mg/dL Urine Glucose (UA) (NEGATIVE) mg/dL Urine Ketones (NEGATIVE) mg/dL Urine Occult Blood (NEGATIVE) Urine Nitrite (NEGATIVE) Urine Bilirubin (NEGATIVE) Urine Urobilinogen (<2.0) EU/dL Ur Leukocyte Esterase (NEGATIVE) Urine RBC (0-2/HPF) Urine WBC (0-5/HPF) Ur Epithelial Cells (NONE-FEW) Urine Bacteria (NEGATIVE) Urine Mucus (NONE-MOD) 01/08/17 01/08/17 01/08/17 Range/Units 04:53 04:53 04:53 WBC (4.0-11.0) K/uL RBC (4.50-5.90) M/uL Hgb (13.0-17.0) g/dL Hct (38.0-50.0) % MCV (80.0-98.0) fL MCH (27.0-32.0) pg MCHC (31.0-37.0) g/dL RDW Std Deviation (28.0-62.0) fl RDW Coeff of Rock (11.0-15.0) % Plt Count (150-400) K/uL MPV (7.40-12.00) fL Neut % (Auto) (48.0-80.0) % Lymph % (Auto) (16.0-40.0) % Tama % (Auto) (0.0-15.0) % Eos % (Auto) (0.0-7.0) % Baso % (Auto) (0.0-1.5) % Neut # (1.4-5.7) K/uL Lymph # (0.6-2.4) K/uL Tama # (0.0-0.8) K/uL Eos # (0.0-0.7) K/uL Baso # (0.0-0.1) K/uL Nucleated RBC % /100WBC Nucleated RBCs # K/uL ESR 10 (0-19) mm/hr Lactate 0.8 (0.20-2.00) mmol/L Sodium (136-146) mmol/L Potassium (3.5-5.1) mmol/L Chloride (98-110) mmol/L Carbon Dioxide (21-31) mmol/L BUN (6.0-23.0) mg/dL Creatinine (0.6-1.5) mg/dL Est Cr Clr Drug Dosing mL/min Estimated GFR (MDRD) ml/min Glucose (60-110) mg/dL Calcium (8.8-10.8) mg/dL Total Bilirubin (0.1-1.5) mg/dL Direct Bilirubin 0.5 (0.0-0.5) mg/dL AST (5-40) IU/L ALT (8-54) IU/L Alkaline Phosphatase (40-150) Troponin I (0.0-0.29) NG/ML Total Protein (6.0-8.0) g/dL Albumin (3.5-5.0) g/dL Globulin (2.0-3.5) g/dL Albumin/Globulin Ratio (1.3-2.8) Amylase (10-90) U/L Lipase (7-80) U/L Urine Color Urine Appearance Urine pH (5.0-8.0) Ur Specific [place] (1.001-1.035) Urine Protein (NEGATIVE) mg/dL Urine Glucose (UA) (NEGATIVE) mg/dL Urine Ketones (NEGATIVE) mg/dL Urine Occult Blood (NEGATIVE) Urine Nitrite (NEGATIVE) Urine Bilirubin (NEGATIVE) Urine Urobilinogen (<2.0) EU/dL Ur Leukocyte Esterase (NEGATIVE) Urine RBC (0-2/HPF) Urine WBC (0-5/HPF) Ur Epithelial Cells (NONE-FEW) Urine Bacteria (NEGATIVE) Urine Mucus (NONE-MOD) Maxime Results last 24 hrs: Microbiology 01/08/17 04:53 Anaerobic Blood Culture - Final Blood - Venous Med Orders - Current: Current Medications Acetaminophen (Tylenol) 325 mg PO Q4H PRN PRN Reason: Fever Greater Than 101 Lactated Ringer's (Ringers, Lactated) 1,000 mls @ 125 mls/hr IV ASDIRECTED [facility] Last Admin: 01/08/17 10:08 Dose: 125 mls/hr Pantoprazole Sodium 40 mg/ (Sodium Chloride) 10 mls @ 300 mls/hr IVPUSH Q24H [facility] Last Admin: 01/07/17 23:50 Dose: 300 mls/hr Piperacillin Sod/Tazobactam (Sod 4.5 gm/ Sodium Chloride) 100 mls @ 100 mls/hr IV Q6H [facility] Last Admin: 01/08/17 11:47 Dose: 100 mls/hr Acetaminophen 650 mg/ Premix 65 mls @ 400 mls/hr IV Q6H [facility] Last Admin: 01/08/17 13:24 Dose: 400 mls/hr Metoclopramide HCl (Reglan) 10 mg IV Q6H [facility] Last Admin: 01/08/17 11:47 Dose: 10 mg Morphine Sulfate (Morphine Senior Account Representative 30 Mg In 30 Ml) 30 mg IV ASDIRECTED [facility] PRN Reason: Protocol Last Admin: 01/08/17 07:21 Dose: 30 mg Ondansetron HCl (Zofran) 4 mg IVPUSH Q6H PRN PRN Reason: Nausea/Vomiting Last Admin: 01/07/17 23:36 Dose: 4 mg Sodium Chloride (Saline Flush) 10 ml FLUSH ASDIRECTED PRN PRN Reason: Keep Vein Open Sodium Chloride (Saline Flush) 2.5 ml FLUSH ASDIRECTED PRN PRN Reason: Keep Vein Open Sucralfate (Carafate) 1 gm PO Q6H [facility] Last Admin: 01/08/17 12:24 Dose: Not Given Discontinued Medications Acetaminophen/Hydrocodone Bitart (Voca 325-5 Mg) 1 - 2 tab PO Q4H PRN PRN Reason: Pain (moderate 4-6) Last Admin: 01/08/17 00:33 Dose: 2 tab Clonidine HCl (Catapres) 0.1 mg PO ONETIME ONE Stop: 01/08/17 03:06 Last Admin: 01/08/17 03:12 Dose: 0.1 mg Hydromorphone HCl (Dilaudid) 1 mg IVPUSH ONETIME ONE Stop: 01/07/17 22:29 Last Admin: 01/07/17 22:33 Dose: 1 mg Hydromorphone HCl (Dilaudid) 1 mg IVPUSH ONETIME ONE Stop: 01/08/17 01:46 Last Admin: 01/08/17 02:01 Dose: 1 mg Hydromorphone HCl (Dilaudid) 1 mg IVPUSH ONETIME ONE Stop: 01/08/17 12:03 Last Admin: 01/08/17 12:09 Dose: 1 mg Sodium Chloride (Normal Saline) 1,000 mls @ 999 mls/hr IV STAT ONE Stop: 01/07/17 21:24 Last Admin: 01/07/17 20:28 Dose: 999 mls/hr Iopamidol (Isovue Multipack-370 (76%)) 100 ml IVPUSH ONETIME STA Stop: 01/08/17 03:01 Last Admin: 01/08/17 03:01 Dose: 100 ml Ketorolac Tromethamine (Toradol) 30 mg IVPUSH ONETIME ONE Stop: 01/07/17 20:58 Last Admin: 01/07/17 21:01 Dose: 30 mg Ketorolac Tromethamine (Toradol) 15 mg IVPUSH ONETIME ONE Stop: 01/08/17 02:16 Last Admin: 01/08/17 02:24 Dose: 15 mg Morphine Sulfate (Morphine) 4 mg IVPUSH ONETIME ONE Stop: 01/07/17 20:25 Last Admin: 01/07/17 20:29 Dose: 4 mg Morphine Sulfate (Morphine Senior Account Representative 30 Mg In 30 Ml) 30 mg IV SEECOMMENT [facility] Last Admin: 01/08/17 00:08 Dose: 30 mg Morphine Sulfate (Morphine) 4 mg IVPUSH ONETIME ONE Stop: 01/08/17 11:58 Last Admin: 01/08/17 12:09 Dose: Not Given Ondansetron HCl (Zofran) 4 mg IVPUSH ONETIME ONE Stop: 01/07/17 20:25 Last Admin: 01/07/17 20:31 Dose: 4 mg - Exam Wound/Incisions: healing well, no drainage Quality Assessment: supplemental oxygen General: alert, oriented, cooperative, moderate distress HEENT: Pupils equal, Pupils reactive. No: Scleral icterus Neck: supple, trachea midline Lungs: Clear to auscultation, Normal respiratory effort Cardiovascular: regular rate, regular rhythm, no murmurs, tachycardia Abdomen: guarding, tenderness, distension, abnormal bowel sounds (hypoactive) Extremities: no edema Skin: warm, dry, intact Psy/Mental Status: alert, anxious - Problem List & Annotations (1) Abdominal pain SNOMED Code(s): 42182455 Code(s): R10.9 - UNSPECIFIED ABDOMINAL PAIN Status: Acute Priority: High Current Visit: Yes Qualifiers: Abdominal location: epigastric Qualified Code(s): R10.13 - Epigastric pain (2) Bile leak, postoperative SNOMED Code(s): 132083529 Code(s): K91.89 - OTH POSTPROCEDURAL COMPLICATIONS AND DISORDERS OF DGSTV SYS ; K83.8 - OTHER SPECIFIED DISEASES OF BILIARY TRACT Status: Acute Priority: High Current Visit: Yes - Problem List Review Problem List Initiated/Reviewed/Updated: Yes - My Orders Last 24 Hours: Active Orders 24 hr Category Date Time Status Antiembolic Devices [RC] PER UNIT ROUTINE Care 01/07/17 22:36 Active Communication Order [RC] ROUTINE Care 01/08/17 02:17 Active EKG Documentation Completion [RC] STAT Care 01/08/17 02:15 Active Clear Liquid Diet [DIET] Diet 01/08/17 Dinner Active Abdomen Pelvis w wo Cont [CT] Stat Exams 01/08/17 02:42 Taken Abdomen Pelvis wo Cont [CT] Routine Exams 01/08/17 02:42 Stop Req Cholescintigraphy [NM] Urgent Exams 01/08/17 10:30 Taken BASIC METABOLIC PANEL,BMP [CHEM] Routine Lab 01/09/17 05:11 Ordered CULTURE BLOOD [BC] Stat Lab 01/08/17 04:53 Results CULTURE BLOOD [BC] Stat Lab 01/08/17 04:54 Received HEPATIC FUNCTION PANEL,HFP [CHEM] Routine Lab 01/09/17 05:11 Ordered Acetaminophen [Ofirmev] 650 mg Med 01/08/17 12:15 Active Premix Bag 1 bag IV Q6H Acetaminophen [Tylenol] Med 01/07/17 22:35 Active 325 mg PO Q4H PRN Lactated Ringers [Ringers, Lactated] 1,000 ml Med 01/07/17 22:45 Active IV ASDIRECTED Metoclopramide [Reglan] Med 01/07/17 22:45 Active 10 mg IV Q6H Morphine PF [Morphine WATCH SUPERVISOR 30 MG in 30 ML] Med 01/08/17 04:00 Active 30 mg IV ASDIRECTED Ondansetron [Zofran] Med 01/07/17 22:35 Active 4 mg IVPUSH Q6H PRN Pantoprazole [Protonix IV] 40 mg Med 01/07/17 22:45 Active Sodium Chloride 0.9% [Normal Saline] 10 ml IVPUSH Q24H Piperacillin/Tazobactam [Piperacil-Tazobact] 4.5 gm Med 01/08/17 04:30 Active Sodium Chloride 0.9% [Normal Saline] 100 ml IV Q6H Sucralfate [Carafate] Med 01/07/17 22:45 Active 1 gm PO Q6H Blood Culture x2 Reflex Set [OM.PC] Stat Oth 01/08/17 04:22 Ordered Medication Orders Acetaminophen (Tylenol) 325 mg PO Q4H PRN PRN Reason: Fever Greater Than 101 Lactated Ringer's (Ringers, Lactated) 1,000 mls @ 125 mls/hr IV ASDIRECTED [facility] Last Admin: 01/08/17 10:08 Dose: 125 mls/hr Infusion: 01/08/17 07:53 Dose: 125 mls/hr Admin: 01/07/17 23:53 Dose: 125 mls/hr Pantoprazole Sodium 40 mg/ (Sodium Chloride) 10 mls @ 300 mls/hr IVPUSH Q24H [facility] Last Admin: 01/07/17 23:50 Dose: 300 mls/hr Piperacillin Sod/Tazobactam (Sod 4.5 gm/ Sodium Chloride) 100 mls @ 100 mls/hr IV Q6H [facility] Last Admin: 01/08/17 11:47 Dose: 100 mls/hr Infusion: 01/08/17 05:45 Dose: 100 mls/hr Admin: 01/08/17 04:45 Dose: 100 mls/hr Acetaminophen 650 mg/ Premix 65 mls @ 400 mls/hr IV Q6H [facility] Last Admin: 01/08/17 13:24 Dose: 400 mls/hr Metoclopramide HCl (Reglan) 10 mg IV Q6H [facility] Last Admin: 01/08/17 11:47 Dose: 10 mg Admin: 01/08/17 04:46 Dose: 10 mg Admin: 01/07/17 23:37 Dose: 10 mg Morphine Sulfate (Morphine Senior Account Representative 30 Mg In 30 Ml) 30 mg IV ASDIRECTED [facility] PRN Reason: Protocol Last Admin: 01/08/17 07:21 Dose: 30 mg Ondansetron HCl (Zofran) 4 mg IVPUSH Q6H PRN PRN Reason: Nausea/Vomiting Last Admin: 01/07/17 23:36 Dose: 4 mg Sodium Chloride (Saline Flush) 10 ml FLUSH ASDIRECTED PRN PRN Reason: Keep Vein Open Sodium Chloride (Saline Flush) 2.5 ml FLUSH ASDIRECTED PRN PRN Reason: Keep Vein Open Sucralfate (Carafate) 1 gm PO Q6H [facility] Last Admin: 01/08/17 12:24 Dose: Not Given Admin: 01/08/17 04:49 Dose: 1 gm Admin: 01/08/17 00:15 Dose: 1 gm - Assessment Assessment (Free Text/Narrative):: Hepatobiliary scan has been completed and does show a bile leak as suggested earlier by CT imaging. WBC has gone up with a left shift. LFT's more elevated. Bilirubin unchanged. - Plan Plan (Free Text/Narrative):: Appreciate Dr. Shipman' help. Patient will need transfer to a facility capable of ERCP and stent placement. Dr. Obrien has made arrangements for transfer to [facility].
--- NOTE | 2017-01-08 15:00 | US ---
EXAM DATE: 01/07/17 PATIENT'S AGE: 51 Patient: YAIMA WHITMORE Facility: [place], [place] Site . Site : 1965 Study: US Abdomen [id number]/8/2017 9:45:28 PM Ordering Physician: Doctor Fernandez Final Report: HISTORY: Epigastric pain. Laparoscopic cholecystectomy 05 January 2017. FINDINGS: Multiple grayscale static images from a limited abdominal ultrasound evaluated and compared with 26 Dec 2016. The exam is limited secondary to gas. This may be from prior laparoscopic procedure or bowel gas. The pancreatic body is normal. Head and tail are not well seen. Right lobe of the liver measures 14.5 cm. The liver is homogeneous in echotexture. No intrahepatic ductal dilatation or mass is seen. There is no fluid in Garcia`s pouch. The right kidney measures 10.8 cm and is free of hydronephrosis or mass. The common bile duct measures 7 mm. This is increased from previous examination when it measured 3 mm. No abnormal fluid collections appreciated. The left kidney is unremarkable. IMPRESSION: 1. Normal appearance of the liver and kidneys. 2. The pancreas is not well seen. The pancreatic body is unremarkable. 3. There is increased size of the common bile duct at 7 mm increased from prior examination at 3 mm. No choledocholithiasis is appreciated. No intrahepatic ductal dilatation. Dictated by Kenna Negron MD @ 01/07/2017 10:09:47 PM Dictated by: Kenna Negron MD @ 01/07/2017 22:10:35 (Electronic Signature) Report Signed by Proxy and Original Signed Document filed in the Medical Record. [facility]
--- NOTE | 2017-01-08 15:05 | CR ---
EXAM DATE: 01/07/17 PATIENT'S AGE: 51 Patient: YAIMA WHITMORE Facility: [place], [place] Site . Site : 1965 Study: XRay Chest [id number]/8/2017 9:47:32 PM Ordering Physician: Doctor Fernandez Final Report: INDICATIONS: Abdominal pain. Gallbladder removed on 01/05/2017. TECHNIQUE: Chest 2 view. COMPARISON: None FINDINGS: No pneumothorax or pleural effusion. Mild linear scarring or atelectasis at the right lung base. Lungs are otherwise clear. Cardiac and mediastinal contours are within normal limits. Upper abdomen and osseous structures as imaged show no acute abnormality. Right upper quadrant surgical clips. Cervical fusion changes. IMPRESSION: No acute cardiopulmonary disease. Dictated by Rusty Ring MD @ 01/07/2017 10:01:06 PM Dictated by: Rusty Ring MD @ 01/07/2017 22:01:14 (Electronic Signature) Report Signed by Proxy and Original Signed Document filed in the Medical Record. [facility]
--- NOTE | 2017-01-08 15:06 | CR ---
EXAM DATE: 01/07/17 PATIENT'S AGE: 51 Patient: YAIMA WHITMORE Facility: [place], [place] Site . Site : 1965 Study: XRay Abdomen [id number]/8/2017 10:20:44 PM Ordering Physician: Chris Final Report: HISTORY: Abdomen pain. Gallbladder removed 05 January 2017. FINDINGS: Upright and 2 supine radiographs of the abdomen demonstrates no free air under the diaphragm. There surgical clips in the right upper quadrant prior cholecystectomy. There is a 9.7 cm distended loop of colon in the right side of the abdomen. No dilated small bowel loops are seen. No air-fluid levels. IMPRESSION: 1. Surgical clips right upper quadrant prior cholecystectomy. 2. No free air. 3. Distended loop of colon in the right lower quadrant measuring 9.7 cm previously be cecum. 4. No dilated small bowel loops to suggest small bowel obstruction. Dictated by Kenna Negron MD @ 01/07/2017 10:37:22 PM Dictated by: Kenna Negron MD @ 01/07/2017 22:37:27 (Electronic Signature) Report Signed by Proxy and Original Signed Document filed in the Medical Record. [email or web address]
--- NOTE | 2017-01-08 15:55 | CT ---
EXAM DATE: 01/07/17 PATIENT'S AGE: 51 Patient: YAIMA WHITMORE Facility: [place], [place] Site . Site : 1965 Study: CT Abdomen/Pelvis [id number]/9/2017 4:01:31 AM Ordering Physician: Chris Alston Final Report: CLINICAL INDICATION: Laparoscopic cholecystectomy 3 days ago. Severe abdominal pain. Technique: An initial noncontrast CT scan was performed of the abdomen and pelvis. This has been followed by contrast infused study. All CT scans at this facility utilize tools modulation, iterative reconstruction, and/or weight-based dosing when appropriate to reduce radiation dose to as low as reasonably achievable. Findings: There is a small amount of free intraperitoneal air consistent with the recent surgery. There is also a minimal amount of free intraperitoneal fluid. The gallbladder has been removed. There is fluid with a small amount of air in the gallbladder fossa. This fluid collection measures approximately 3.5 cm in diameter. The liver, spleen, pancreas, adrenals and kidneys appear normal. There are no enlarged retroperitoneal, mesenteric, iliac or inguinal lymph nodes. The colon and small bowel appear normal. The urinary bladder, seminal vesicles and prostate gland appear normal. There are bilateral vasectomy clips. There is dependent atelectasis of both lung bases. Impression: Status post recent cholecystectomy. There is a small amount of free intraperitoneal air and fluid which is a normal postoperative finding. There is also a collection of fluid in the gallbladder fossa. A biloma is possible. A radionuclide HIDA scan should be considered. Dictated by Quan Hedrick MD @ Jan 08 2017 4:53AM (Electronic Signature) Report Signed by Proxy and Original Signed Document filed in the Medical Record. [facility]
--- NOTE | 2017-01-08 16:49 | NM ---
EXAM DATE: 01/07/17 PATIENT'S AGE: 51 Patient: YAIMA WHITMORE Facility: [place], [place] Site Site : 1965 Study: NM Gallbladder [id number]/9/2017 12:14:21 PM Ordering Physician: MINA Final Report: HISTORY: 51-year-old male. Status post cholecystectomy. Abdominal pain. Evaluate for bile leak. Technique: 3.9 millicuries of [id number] was injected intravenously. Images of the liver and abdomen were obtained in the anterior projection for 80 minutes. Findings: There is good uptake of activity by the hepatocytes. There is visualization of the intra and extrahepatic biliary tree and small bowel. The gallbladder fossa fills. This is consistent with a bile leak. There is also extravasation of radio labeled bile into the perigastric region. There is some tracking along the left pericolic gutter as well. Impression: 1. There are findings consistent with a bile leak. 2. These findings were called to and discussed with the ordering physician, Dr. Gamaliel Perez, on 01/08/2017 at approximately 12:35 p.m. Dictated by Valentino Aguilar MD @ Jan 08 2017 12:26PM (Electronic Signature) Report Signed by Proxy and Original Signed Document filed in the Medical Record. [facility]
--- NOTE | 2017-01-08 17:02 | PCM.CONS ---
H&P History of Present Illness - General Date of Service: 01/08/17 Admit Problem/Dx: Admission Diagnosis/Problem Admission Diagnosis/Problem Abdominal pain Source of Information: Patient - History of Present Illness Initial Comments - Free Text/Narative: I was called to evaluate patient around 2: 30 am for chest pain . Patient was sitting at the edge of the bed , has abdominal pain epigatric , on morphine pump , 0.5 mg q 6 min , and in severe pain . his bp was around 190/ 103 , and his pain was diffuse , more severe epigastric, upper abdomen . Abdomen was rigid , no N no V . No prior cardiac history . Ekg was ordered and serial tropnins . Ekg showed no ischemia and the troponin was negative Patient surgeon was informed about the abdominal pain , by the nurse. Ct abdomen and pelvis with iv contrast was ordered. Ct was called stat.I have asked nurse to do it JONE , because i was concern patient has perforation. Ct done around 4:30 am . Labs were ordered. WBC increased to 13, lactae nl , inflammatory markers nl. Patient was seen in ER by surgery , X ray abdomen showed no obstruction . US of abdomen showed mild dialation of commom bile duct , no stones . Ct of the abdomen remarkable for small amount of intraperitoneal air which is commonly seen after surgery and possible biloma, no perforation or obstruction. I have discussed with Dr. Perez the labs results and he was also informed about the finding of Ct abdomen . he recommended Hida scan and patient was found to have biliary leak and he recommended patient transfer to [facility]. Dw Dr. Gillespie and Dr. Sousa and they accepted the patient . Patient also was placed on cleared liquid as per Gi recommendation . He was also started last night on Zosyn 4.5 g iv q 6 h for surgery prophylaxis. ] Abdominal Pain Score (Numeric/FACES): 10 - Related Data Allergies/Adverse Reactions: Allergies Allergy/AdvReac Type Severity Reaction Status Date / Time No Known Allergies Allergy Verified 01/07/17 20:35 Home Medications: Home Meds Multivitamin [Multivitamins] 1 tab PO DAILY 03/06/16 [History] Ondansetron HCl [Ondansetron] 4 mg PO ASDIRECTED PRN 12/31/16 [History] Ciprofloxacin HCl [Cipro] 500 mg PO BID 01/01/17 [History] Hydrocodone/Acetaminophen [Hydrocodon-Acetaminophen 5-325] 1 tab PO ASDIRECTED PRN 01/01/17 [History] Past Medical History HEENT History: Reports: Impaired vision Other HEENT History: wears glasses Cardiovascular History: Reports: None Respiratory History: Reports: None Gastrointestinal History: Reports: None Genitourinary History: Reports: None Musculoskeletal History: Reports: None Neurological History: Reports: None Psychiatric History: Reports: None Endocrine/Metabolic History: Reports: None Hematologic History: Reports: None Immunologic History: Reports: None Oncologic (Cancer) History: Reports: None Dermatologic History: Reports: None - Infectious Disease History Infectious Disease History: Reports: Chicken pox, Measles, Mumps - Past Surgical History Head Surgeries/Procedures: Reports: None HEENT Surgical History: Reports: None Cardiovascular Surgical History: Reports: None Respiratory Surgical History: Reports: None GI Surgical History: Reports: Cholecystectomy, Other (see below) Other GI Surgeries/Procedures: Lap obdulio last thursday (January 05, 2017) Male Surgical History: Reports: None Endocrine Surgical History: Reports: None Neurological Surgical History: Reports: C-Spine Other Neurological Surgeries/Procedures: anterior cervical disc fusion C4-C7 Musculoskeletal Surgical History: Reports: Other (see below) Other Musculoskeletal Surgeries/Procedures:: neck fusion C4-5-6-7 (ACDF) Oncologic Surgical History: Reports: None Dermatological Surgical History: Reports: None Social & Family History - Family History Family Medical History: Noncontributory - Tobacco Use Smoking Status *Q: Current Every Day Smoker Years of Tobacco use: 40 Packs/Tins Daily: 1.5 Month Tobacco Last Used: smokes 1 1/2 pk of cigarettes per day - Caffeine Use Caffeine Use: Reports: Coffee, Soda, Tea - Recreational Drug Use Recreational Drug Use: No Drug Use in Last 12 Months: No H&P Review of Systems - Review of Systems: Review Of Systems: See Below HEENT: Reports: no symptoms Pulmonary: Reports: no symptoms Cardiovascular: Reports: blood pressure problem Gastrointestinal: Reports: Abdominal pain, Nausea Genitourinary: Reports: no symptoms Musculoskeletal: Reports: no symptoms Skin: Reports: no symptoms Psychiatric: Reports: no symptoms Neurological: Reports: no symptoms Hematologic/Lymphatic: Reports: no symptoms Immunologic: Reports: no symptoms Exam - Exam Exam: See Below - Vital Signs Vital Signs: Last Vital Signs Temp 97.6 F 01/08/17 12:00 Pulse 80 01/08/17 12:00 Resp 22 H 01/08/17 12:00 BP 144/77 H 01/08/17 12:00 Pulse Ox 90 L 01/08/17 12:00 Weight: 160 lb - Exam Quality Assessment: supplemental oxygen General: alert, oriented HEENT: Conjunctiva clear, EACs clear, EOMI, Hearing intact Neck: supple, trachea midline Lungs: Clear to auscultation, Normal respiratory effort Cardiovascular: regular rate, regular rhythm, normal S1, normal S2 Abdomen: normal bowel sounds, rigidity, tenderness. No: guarding, rebound Rectal (Males) Exam: Normal exam Back Exam: normal inspection Extremities: normal inspection - Patient Data Lab Results last 24 hrs: Laboratory Results - last 24 hr 01/07/17 01/08/17 01/08/17 Range/Units 22:58 02:55 02:55 WBC 13.06 H (4.0-11.0) K/uL RBC 4.67 (4.50-5.90) M/uL Hgb 14.8 (13.0-17.0) g/dL Hct 43.9 (38.0-50.0) % MCV 94.0 (80.0-98.0) fL MCH 31.7 (27.0-32.0) pg MCHC 33.7 (31.0-37.0) g/dL RDW Std Deviation 40.8 (28.0-62.0) fl RDW Coeff of Rock 12 (11.0-15.0) % Plt Count 132 L (150-400) K/uL MPV 10.90 (7.40-12.00) fL Neut % (Auto) 82.4 H (48.0-80.0) % Lymph % (Auto) 11.3 L (16.0-40.0) % Bee % (Auto) 6.0 (0.0-15.0) % Eos % (Auto) 0.2 (0.0-7.0) % Baso % (Auto) 0.1 (0.0-1.5) % Neut # 10.8 H (1.4-5.7) K/uL Lymph # 1.5 (0.6-2.4) K/uL Bee # 0.8 (0.0-0.8) K/uL Eos # 0.0 (0.0-0.7) K/uL Baso # 0.0 (0.0-0.1) K/uL Nucleated RBC % /100WBC Nucleated RBCs # K/uL ESR (0-19) mm/hr Lactate (0.20-2.00) mmol/L Sodium 141 (136-146) mmol/L Potassium 3.9 (3.5-5.1) mmol/L Chloride 106 (98-110) mmol/L Carbon Dioxide 25 (21-31) mmol/L BUN 15 (6.0-23.0) mg/dL Creatinine 0.8 (0.6-1.5) mg/dL Est Cr Clr Drug Dosing 108.01 mL/min Estimated GFR (MDRD) > 60.0 ml/min Glucose 134 H (60-110) mg/dL Calcium 8.8 (8.8-10.8) mg/dL Total Bilirubin 0.7 (0.1-1.5) mg/dL Direct Bilirubin (0.0-0.5) mg/dL AST 135 H (5-40) IU/L ALT 126 H (8-54) IU/L Alkaline Phosphatase 54 (40-150) Troponin I (0.0-0.29) NG/ML Total Protein 7.4 (6.0-8.0) g/dL Albumin 4.1 (3.5-5.0) g/dL Globulin 3.3 (2.0-3.5) g/dL Albumin/Globulin Ratio 1.2 L (1.3-2.8) Amylase 49 (10-90) U/L Lipase 17 (7-80) U/L Urine Color YELLOW Urine Appearance CLEAR Urine pH 6.5 (5.0-8.0) Ur Specific [place] 1.025 (1.001-1.035) Urine Protein NEGATIVE (NEGATIVE) mg/dL Urine Glucose (UA) NEGATIVE (NEGATIVE) mg/dL Urine Ketones NEGATIVE (NEGATIVE) mg/dL Urine Occult Blood NEGATIVE (NEGATIVE) Urine Nitrite NEGATIVE (NEGATIVE) Urine Bilirubin NEGATIVE (NEGATIVE) Urine Urobilinogen 0.2 (<2.0) EU/dL Ur Leukocyte Esterase NEGATIVE (NEGATIVE) Urine RBC 0-2 (0-2/HPF) Urine WBC 0-2 (0-5/HPF) Ur Epithelial Cells RARE (NONE-FEW) Urine Bacteria RARE (NEGATIVE) Urine Mucus LIGHT (NONE-MOD) 01/08/17 01/08/17 01/08/17 Range/Units 02:55 04:53 04:53 WBC 13.68 H (4.0-11.0) K/uL RBC 4.79 (4.50-5.90) M/uL Hgb 15.3 (13.0-17.0) g/dL Hct 44.3 (38.0-50.0) % MCV 92.5 (80.0-98.0) fL MCH 31.9 (27.0-32.0) pg MCHC 34.5 (31.0-37.0) g/dL RDW Std Deviation 42.6 (28.0-62.0) fl RDW Coeff of Rock 13 (11.0-15.0) % Plt Count 152 (150-400) K/uL MPV 12.10 H (7.40-12.00) fL Neut % (Auto) 85.4 H (48.0-80.0) % Lymph % (Auto) 8.4 L (16.0-40.0) % Bee % (Auto) 6.0 (0.0-15.0) % Eos % (Auto) 0.1 (0.0-7.0) % Baso % (Auto) 0.1 (0.0-1.5) % Neut # 11.7 H (1.4-5.7) K/uL Lymph # 1.2 (0.6-2.4) K/uL Bee # 0.8 (0.0-0.8) K/uL Eos # 0.0 (0.0-0.7) K/uL Baso # 0.0 (0.0-0.1) K/uL Nucleated RBC % 0.0 /100WBC Nucleated RBCs # 0 K/uL ESR (0-19) mm/hr Lactate (0.20-2.00) mmol/L Sodium 139 (136-146) mmol/L Potassium 4.2 (3.5-5.1) mmol/L Chloride 105 (98-110) mmol/L Carbon Dioxide 22 (21-31) mmol/L BUN 12 (6.0-23.0) mg/dL Creatinine 0.7 (0.6-1.5) mg/dL Est Cr Clr Drug Dosing 123.44 mL/min Estimated GFR (MDRD) > 60.0 ml/min Glucose 112 H (60-110) mg/dL Calcium 9.0 (8.8-10.8) mg/dL Total Bilirubin (0.1-1.5) mg/dL Direct Bilirubin (0.0-0.5) mg/dL AST (5-40) IU/L ALT (8-54) IU/L Alkaline Phosphatase (40-150) Troponin I < 0.10 (0.0-0.29) NG/ML Total Protein (6.0-8.0) g/dL Albumin (3.5-5.0) g/dL Globulin (2.0-3.5) g/dL Albumin/Globulin Ratio (1.3-2.8) Amylase (10-90) U/L Lipase (7-80) U/L Urine Color Urine Appearance Urine pH (5.0-8.0) Ur Specific [place] (1.001-1.035) Urine Protein (NEGATIVE) mg/dL Urine Glucose (UA) (NEGATIVE) mg/dL Urine Ketones (NEGATIVE) mg/dL Urine Occult Blood (NEGATIVE) Urine Nitrite (NEGATIVE) Urine Bilirubin (NEGATIVE) Urine Urobilinogen (<2.0) EU/dL Ur Leukocyte Esterase (NEGATIVE) Urine RBC (0-2/HPF) Urine WBC (0-5/HPF) Ur Epithelial Cells (NONE-FEW) Urine Bacteria (NEGATIVE) Urine Mucus (NONE-MOD) 01/08/17 01/08/17 01/08/17 Range/Units 04:53 04:53 04:53 WBC (4.0-11.0) K/uL RBC (4.50-5.90) M/uL Hgb (13.0-17.0) g/dL Hct (38.0-50.0) % MCV (80.0-98.0) fL MCH (27.0-32.0) pg MCHC (31.0-37.0) g/dL RDW Std Deviation (28.0-62.0) fl RDW Coeff of Rock (11.0-15.0) % Plt Count (150-400) K/uL MPV (7.40-12.00) fL Neut % (Auto) (48.0-80.0) % Lymph % (Auto) (16.0-40.0) % Bee % (Auto) (0.0-15.0) % Eos % (Auto) (0.0-7.0) % Baso % (Auto) (0.0-1.5) % Neut # (1.4-5.7) K/uL Lymph # (0.6-2.4) K/uL Bee # (0.0-0.8) K/uL Eos # (0.0-0.7) K/uL Baso # (0.0-0.1) K/uL Nucleated RBC % /100WBC Nucleated RBCs # K/uL ESR 10 (0-19) mm/hr Lactate 0.8 (0.20-2.00) mmol/L Sodium (136-146) mmol/L Potassium (3.5-5.1) mmol/L Chloride (98-110) mmol/L Carbon Dioxide (21-31) mmol/L BUN (6.0-23.0) mg/dL Creatinine (0.6-1.5) mg/dL Est Cr Clr Drug Dosing mL/min Estimated GFR (MDRD) ml/min Glucose (60-110) mg/dL Calcium (8.8-10.8) mg/dL Total Bilirubin (0.1-1.5) mg/dL Direct Bilirubin 0.5 (0.0-0.5) mg/dL AST (5-40) IU/L ALT (8-54) IU/L Alkaline Phosphatase (40-150) Troponin I (0.0-0.29) NG/ML Total Protein (6.0-8.0) g/dL Albumin (3.5-5.0) g/dL Globulin (2.0-3.5) g/dL Albumin/Globulin Ratio (1.3-2.8) Amylase (10-90) U/L Lipase (7-80) U/L Urine Color Urine Appearance Urine pH (5.0-8.0) Ur Specific [place] (1.001-1.035) Urine Protein (NEGATIVE) mg/dL Urine Glucose (UA) (NEGATIVE) mg/dL Urine Ketones (NEGATIVE) mg/dL Urine Occult Blood (NEGATIVE) Urine Nitrite (NEGATIVE) Urine Bilirubin (NEGATIVE) Urine Urobilinogen (<2.0) EU/dL Ur Leukocyte Esterase (NEGATIVE) Urine RBC (0-2/HPF) Urine WBC (0-5/HPF) Ur Epithelial Cells (NONE-FEW) Urine Bacteria (NEGATIVE) Urine Mucus (NONE-MOD) Result Diagrams: 01/08/17 04:53 01/08/17 04:53 Maxime Results last 24 hrs: Microbiology 01/08/17 04:53 Anaerobic Blood Culture - Final Blood - Venous Consult PN Assessment/Plan Procedures: Procedures ASSAY OF AMYLASE (12/26/16) ASSAY OF LIPASE (12/26/16) ASSAY OF TROPONIN QUANT (12/26/16) COMPLETE CBC W/AUTO DIFF WBC (12/26/16) COMPREHEN METABOLIC PANEL (12/26/16) DIAGNOSTIC COLONOSCOPY (03/10/16) ECHO EXAM OF ABDOMEN (12/26/16) ELECTROCARDIOGRAM TRACING (12/26/16) EMERGENCY DEPT VISIT (12/26/16) EMERGENCY DEPT VISIT (12/09/15) HYDRATE IV INFUSION ADD-ON (12/26/16) INFLUENZA ASSAY W/OPTIC (12/09/15) LAPAROSCOPIC CHOLECYSTECTOMY (01/05/17) ROUTINE VENIPUNCTURE (12/26/16) THER/PROPH/DIAG INJ IV PUSH (12/26/16) TISSUE EXAM BY PATHOLOGIST (01/05/17) TX/PRO/DX INJ NEW DRUG ADDON (12/26/16) (1) Hypertension, uncontrolled SNOMED Code(s): 67805243 Code(s): I10 - ESSENTIAL (PRIMARY) HYPERTENSION (2) Abdominal pain SNOMED Code(s): 87577061 Code(s): R10.9 - UNSPECIFIED ABDOMINAL PAIN Priority: High Qualifiers: Abdominal location: epigastric Qualified Code(s): R10.13 - Epigastric pain (3) Bile leak, postoperative SNOMED Code(s): 827893699 Code(s): K91.89 - OTH POSTPROCEDURAL COMPLICATIONS AND DISORDERS OF DGSTV SYS ; K83.8 - OTHER SPECIFIED DISEASES OF BILIARY TRACT Priority: High Problem List Initiated/Reviewed/Updated: Yes My Orders last 24 hours: My Active Orders 01/08/17 02:42 Abdomen Pelvis wo Cont [CT] Routine 01/08/17 04:22 Blood Culture x2 Reflex Set [OM.PC] Stat 01/08/17 04:53 CULTURE BLOOD [BC] Stat 01/08/17 04:54 CULTURE BLOOD [BC] Stat 01/08/17 14:21 Urinary Catheter Assessment [RC] ASDIRECTED 01/08/17 14:30 Insert García Catheter [Insert Urinary Catheter] [OM.PC] Q24H Plan: a/p Biliary leak - patient to be transferred to [facility] for biliary stent via helicopter because no available ambulance Pain medications on morphine pump increased, Iv zosyn 4.5 grams q 6 h , bc , clear liquid diet as per Dr. Espinoza. Htn - u/c - patient was given clonidine . epigastric pain / abdominal pain- secondary to biliary leak , serial cardiac enzymes negative , protonix 40 mg iv , transfer to [facility] for biliary stent and ERCp
== END 2017-01-08 13:55 ==
LOC: MW.ED 20:18 → MW.MS 22:34
PROVIDERS: ADMIT Surgery; ATTEND Surgery
DX: K91.89 Other postprocedural complications and disorders of digestive system (principal); Z90.49 Acquired absence of other specified parts of digestive tract; R10.13 Epigastric pain; I10 Essential (primary) hypertension; F17.200 Nicotine dependence, unspecified, uncomplicated
CPT/HCPCS: 36415; 51701; 71020; 74020; 74178; 76705; 78226; 80053; 81001; 82150; 82248; 83605; 83690; 84484; 85025; 85652; 87040; 93005; 96361; 96365; 96366; 96367; 96375; 96376; 99285; A9270; A9537; C9113; G0378; J1170; J1885; J2270; J2274; J2405; J2543; J2765; J7030; J7040; J7120; Q9967; 80048; 96374

== ENCOUNTER 2017-01-24 10:27 | Emergency (ER) | payer OTHER ==
[2017-01-24] MEDS ORDERED: Acetaminophen/oxyCODONE 325-5 MG Tab PO ONE (11:04)
--- NOTE | 2017-01-24 11:20 | EDM.PDOC ---
<Vilma Abraham - Last Filed: 01/24/17 11:21> ED HISTORY OF PRESENT ILLNESS - General Chief Complaint: Respiratory Problem Stated Complaint: PAIN IN RT SIDE Time Seen by Provider: 01/24/17 10:55 - History of Present Illness INITIAL COMMENTS - FREE TEXT/NARRATIVE: This is Dr. Abraham dictating an addendum note as a supervising physician on this case. had said that she would like physician involvement and I'm happy to comply and work with the PA regarding this case. I've seen and evaluated the patient independently and agree with history and physical as above. His abdomen exhibits no tenderness in the upper right middle and left but there is some voluntary guarding not involuntary guarding and no rebound or masses appreciated. His incisions are very well healed. He does have some reproducible chest wall tenderness over the right lower ribs near the breast area but there is no defects deformities or crepitus. Patient has good breath sounds bilaterally but he does have difficulty taking a deep breath due to the pleuritic pain he is experiencing. He has no leg pain swelling or leg asymmetry. We'll proceed with workup as above and reevaluate and add more and disposition as indicated. Patient like something for pain so we have ordered a Percocet by mouth - Related Data Allergies/ADRs: Allergies Allergy/AdvReac Type Severity Reaction Status Date / Time No Known Allergies Allergy Verified 01/07/17 20:35 Home Meds: Home Meds Multivitamin [Multivitamins] 1 tab PO DAILY 03/06/16 [History] Course - Vital Signs Last Recorded V/S: Last Vital Signs Temp 36.7 C 01/24/17 10:34 Pulse 65 01/24/17 12:53 Resp 16 01/24/17 12:53 BP 148/102 H 01/24/17 12:53 Pulse Ox 97 01/24/17 12:53 - Orders/Labs/Meds Orders: Active Orders 24 hr Category Date Time Status EKG 12 Lead [EKG Documentation Completion] [RC] STAT Care 01/24/17 10:45 Active Abdomen Pelvis w Cont [CT] Stat Exams 01/24/17 12:08 Ordered Ang Chest [CT] Stat Exams 01/24/17 12:05 Ordered Chest 2V [CR] Stat Exams 01/24/17 10:57 Ordered Labs: Laboratory Tests 01/24/17 01/24/17 01/24/17 Range/Units 11:08 11:08 11:08 WBC 9.38 (4.0-11.0) K/uL RBC 4.42 L (4.50-5.90) M/uL Hgb 13.9 (13.0-17.0) g/dL Hct 41.6 (38.0-50.0) % MCV 94.1 (80.0-98.0) fL MCH 31.4 (27.0-32.0) pg MCHC 33.4 (31.0-37.0) g/dL RDW Std Deviation 43.8 (28.0-62.0) fl RDW Coeff of Rock 13 (11.0-15.0) % Plt Count 323 (150-400) K/uL MPV 10.90 (7.40-12.00) fL Nucleated RBC % 0.0 /100WBC Nucleated RBCs # 0 K/uL D-Dimer, Quantitative 1.47 H (0.0-0.52) mg/LFEU Lactate (0.20-2.00) mmol/L Sodium 142 (136-146) mmol/L Potassium 4.3 (3.5-5.1) mmol/L Chloride 107 (98-110) mmol/L Carbon Dioxide 27 (21-31) mmol/L BUN 17 (6.0-23.0) mg/dL Creatinine 0.8 (0.6-1.5) mg/dL Est Cr Clr Drug Dosing 106.33 mL/min Estimated GFR (MDRD) > 60.0 ml/min Glucose 106 (60-110) mg/dL Calcium 9.2 (8.8-10.8) mg/dL Total Bilirubin 0.5 (0.1-1.5) mg/dL AST 15 (5-40) IU/L ALT 19 (8-54) IU/L Alkaline Phosphatase 58 (40-150) Total Protein 7.4 (6.0-8.0) g/dL Albumin 3.9 (3.5-5.0) g/dL Globulin 3.5 (2.0-3.5) g/dL Albumin/Globulin Ratio 1.1 L (1.3-2.8) 01/24/17 Range/Units 12:36 WBC (4.0-11.0) K/uL RBC (4.50-5.90) M/uL Hgb (13.0-17.0) g/dL Hct (38.0-50.0) % MCV (80.0-98.0) fL MCH (27.0-32.0) pg MCHC (31.0-37.0) g/dL RDW Std Deviation (28.0-62.0) fl RDW Coeff of Rock (11.0-15.0) % Plt Count (150-400) K/uL MPV (7.40-12.00) fL Nucleated RBC % /100WBC Nucleated RBCs # K/uL D-Dimer, Quantitative (0.0-0.52) mg/LFEU Lactate 1.6 (0.20-2.00) mmol/L Sodium (136-146) mmol/L Potassium (3.5-5.1) mmol/L Chloride (98-110) mmol/L Carbon Dioxide (21-31) mmol/L BUN (6.0-23.0) mg/dL Creatinine (0.6-1.5) mg/dL Est Cr Clr Drug Dosing mL/min Estimated GFR (MDRD) ml/min Glucose (60-110) mg/dL Calcium (8.8-10.8) mg/dL Total Bilirubin (0.1-1.5) mg/dL AST (5-40) IU/L ALT (8-54) IU/L Alkaline Phosphatase (40-150) Total Protein (6.0-8.0) g/dL Albumin (3.5-5.0) g/dL Globulin (2.0-3.5) g/dL Albumin/Globulin Ratio (1.3-2.8) Meds: Medications Discontinued Medications Generic Name Dose Route Start Last Admin Trade Name Freq PRN Reason Stop Dose Admin Iopamidol 100 ml 01/24/17 12:11 01/24/17 13:46 Isovue-370 (76%) IVPUSH 01/24/17 12:12 75 ml ONETIME STA Administration Oxycodone/Acetaminophen 1 tab 01/24/17 11:04 01/24/17 11:17 Percocet 325-5 Mg PO 01/24/17 11:05 1 tab ONETIME ONE Administration Departure - Departure Disposition: Home, Self-Care 01 Clinical Impression: Pleuritic chest pain, Atelectasis Instructions: Nonspecific Chest Pain, [id number] Referrals: PCP,None [Primary Care Provider] - Forms: ED Department Discharge Additional Instructions: The following information is given to patients seen in the emergency department who are being discharged to home. This information is to outline your options for follow-up care. We provide all patients seen in our emergency department with a follow-up referral. The need for follow-up, as well as the timing and circumstances, are variable depending upon the specifics of your emergency department visit. If you don't have a primary care physician on staff, we will provide you with a referral. We always advise you to contact your personal physician following an emergency department visit to inform them of the circumstance of the visit and for follow-up with them and/or the need for any referrals to a consulting specialist. The emergency department will also refer you to a specialist when appropriate. This referral assures that you have the opportunity for follow-up care with a specialist. All of these measure are taken in an effort to provide you with optimal care, which includes your follow-up. Under all circumstances we always encourage you to contact your private physician who remains a resource for coordinating your care. When calling for follow-up care, please make the office aware that this follow-up is from your recent emergency room visit. If for any reason you are refused follow-up, please contact the [facility] Emergency Department at and asked to speak to the emergency department charge nurse. [address] [address] - My Orders Last 24 Hours: My Active Orders 01/24/17 10:45 EKG 12 Lead [EKG Documentation Completion] [RC] STAT 01/24/17 10:57 Chest 2V [CR] Stat 01/24/17 12:05 Ang Chest [CT] Stat 01/24/17 12:08 Abdomen Pelvis w Cont [CT] Stat - Assessment/Plan Last 24 Hours: My Active Orders 01/24/17 10:45 EKG 12 Lead [EKG Documentation Completion] [RC] STAT 01/24/17 10:57 Chest 2V [CR] Stat 01/24/17 12:05 Ang Chest [CT] Stat 01/24/17 12:08 Abdomen Pelvis w Cont [CT] Stat <Marquita Robertson - Last Filed: 01/24/17 13:59> ED HISTORY OF PRESENT ILLNESS - General Source of Information: Reports: Patient, Family History Limitations: Reports: No limitations - History of Present Illness INITIAL COMMENTS - FREE TEXT/NARRATIVE: HISTORY AND PHYSICAL: History of present illness: Patient is a thin, otherwise healthy 51-year-old male who presents to the emergency department with right-sided rib and chest pain that began yesterday evening. Over the last month or so he has had some complications related to cholecystectomy. He had some leaking and was admitted here and then transferred to [place]. He had a couple different surgeons have to attempt repair and he had a stent placed. He was discharged from [place] about 12 days ago and has been feeling a lot better. He hasn't taken a pain pill for about a week. He and his took a walk yesterday. He contacted his employers and was talking about going back to work because he is feeling so much better. Around 6 PM yesterday he started having severe right-sided stabbing chest pain. It is worse with deep breathing movement or coughing. He does not really feel short of breath at rest. The pain does not radiate anywhere. He denies any trauma or injury. He has not fevers. His belly feels a little sore still but there is no any focal or severe pain. He is having bowel movements. He denies problems with urination. Review of systems: As per history of present illness and below otherwise all systems reviewed and negative. Past medical history: As per history of present illness and as reviewed below otherwise noncontributory. Surgical history: As per history of present illness and as reviewed below otherwise noncontributory. Social history: No reported history of drug or alcohol abuse. Family history: As per history of present illness and as reviewed below otherwise noncontributory. Physical exam: HEENT: Atraumatic, normocephalic, pupils reactive. Lungs: Clear to auscultation, breath sounds equal bilaterally, pain with deep respirations. The patient had minimal reproducible pain over the right low ribs. Heart: S1S2, regular, negative for clicks, rubs, or JVD. Abdomen: Soft, nondistended, mild guarding and mild tenderness throughout. No focal tenderness. Pelvis: Stable nontender. Genitourinary: Deferred. Rectal: Deferred. Extremities: Atraumatic, negative for cords or calf pain or pedal edema. Neurovascular unremarkable. Neuro: Awake, alert, oriented. Cranial nerves II through XII unremarkable. Cerebellum unremarkable. Motor and sensory unremarkable throughout. Exam nonfocal. Diagnostics: CBC, CMP, chest x-ray, d-dimer, EKG Therapeutics: percocet Impression: #1: Pleuritic chest pain #2: Atelectasis Plan: Patient had possible infiltrate versus atelectasis on x-ray but his d-dimer was very elevated. At this point we did a chest CT and Danika as well as a CT of the abdomen and pelvis is because of his mild pain plus all of the recent history of surgical issues he has had. The chest CT still showed atelectasis which the radiologist stated was more favored been infiltrate. There is no other abnormality and no PE. We discussed some of the incidental liver lesion findings with family and they were given a copy of their reports that they can followup with their doctor in [place] and/or Dr. Carvajal who they see at [facility]. states they do have an incentives parameter that they have not used. They know how to use and I advised that he begin using it a couple times a day. I gave another prescription for Percocet so he could be able to be successful at this. We also gave Levaquin to cover for possible pneumonia this because of his risk factors. Family is very comfortable with this plan and workup and were agreeable to being discharged from the ED and grateful for care today. Definitive disposition and diagnosis as appropriate pending reevaluation and review of above. Past Medical History HEENT History: Reports: Impaired vision Other HEENT History: wears glasses Cardiovascular History: Reports: None Respiratory History: Reports: None Gastrointestinal History: Reports: None Genitourinary History: Reports: None Musculoskeletal History: Reports: None Neurological History: Reports: None Psychiatric History: Reports: None Endocrine/Metabolic History: Reports: None Hematologic History: Reports: None Immunologic History: Reports: None Oncologic (Cancer) History: Reports: None Dermatologic History: Reports: None - Infectious Disease History Infectious Disease History: Reports: Chicken pox, Measles, Mumps - Past Surgical History Head Surgeries/Procedures: Reports: None HEENT Surgical History: Reports: None Cardiovascular Surgical History: Reports: None Respiratory Surgical History: Reports: None GI Surgical History: Reports: Cholecystectomy, Other (see below) Other GI Surgeries/Procedures: Lap obdulio last thursday (January 05, 2017) Male Surgical History: Reports: None Endocrine Surgical History: Reports: None Neurological Surgical History: Reports: C-Spine Other Neurological Surgeries/Procedures: anterior cervical disc fusion C4-C7 Musculoskeletal Surgical History: Reports: Other (see below) Other Musculoskeletal Surgeries/Procedures:: neck fusion C4-5-6-7 (ACDF) Oncologic Surgical History: Reports: None Dermatological Surgical History: Reports: None Social & Family History - Family History Family Medical History: Noncontributory - Tobacco Use Smoking Status *Q: Current Every Day Smoker Years of Tobacco use: 30 Packs/Tins Daily: 1 Month Tobacco Last Used: smokes 1 1/2 pk of cigarettes per day - Caffeine Use Caffeine Use: Reports: Coffee - Recreational Drug Use Recreational Drug Use: No Drug Use in Last 12 Months: No ED ROS GENERAL - Review of Systems Review Of Systems: ROS reveals no pertinent complaints other than HPI. ED EXAM, GENERAL - Physical Exam Exam: See Below (See history of present) Course - Orders/Labs/Meds Labs: Laboratory Tests 01/24/17 01/24/17 01/24/17 Range/Units 11:08 11:08 11:08 WBC 9.38 (4.0-11.0) K/uL RBC 4.42 L (4.50-5.90) M/uL Hgb 13.9 (13.0-17.0) g/dL Hct 41.6 (38.0-50.0) % MCV 94.1 (80.0-98.0) fL MCH 31.4 (27.0-32.0) pg MCHC 33.4 (31.0-37.0) g/dL RDW Std Deviation 43.8 (28.0-62.0) fl RDW Coeff of Rock 13 (11.0-15.0) % Plt Count 323 (150-400) K/uL MPV 10.90 (7.40-12.00) fL Nucleated RBC % 0.0 /100WBC Nucleated RBCs # 0 K/uL D-Dimer, Quantitative 1.47 H (0.0-0.52) mg/LFEU Lactate (0.20-2.00) mmol/L Sodium 142 (136-146) mmol/L Potassium 4.3 (3.5-5.1) mmol/L Chloride 107 (98-110) mmol/L Carbon Dioxide 27 (21-31) mmol/L BUN 17 (6.0-23.0) mg/dL Creatinine 0.8 (0.6-1.5) mg/dL Est Cr Clr Drug Dosing 106.33 mL/min Estimated GFR (MDRD) > 60.0 ml/min Glucose 106 (60-110) mg/dL Calcium 9.2 (8.8-10.8) mg/dL Total Bilirubin 0.5 (0.1-1.5) mg/dL AST 15 (5-40) IU/L ALT 19 (8-54) IU/L Alkaline Phosphatase 58 (40-150) Total Protein 7.4 (6.0-8.0) g/dL Albumin 3.9 (3.5-5.0) g/dL Globulin 3.5 (2.0-3.5) g/dL Albumin/Globulin Ratio 1.1 L (1.3-2.8) 01/24/17 Range/Units 12:36 WBC (4.0-11.0) K/uL RBC (4.50-5.90) M/uL Hgb (13.0-17.0) g/dL Hct (38.0-50.0) % MCV (80.0-98.0) fL MCH (27.0-32.0) pg MCHC (31.0-37.0) g/dL RDW Std Deviation (28.0-62.0) fl RDW Coeff of Rock (11.0-15.0) % Plt Count (150-400) K/uL MPV (7.40-12.00) fL Nucleated RBC % /100WBC Nucleated RBCs # K/uL D-Dimer, Quantitative (0.0-0.52) mg/LFEU Lactate 1.6 (0.20-2.00) mmol/L Sodium (136-146) mmol/L Potassium (3.5-5.1) mmol/L Chloride (98-110) mmol/L Carbon Dioxide (21-31) mmol/L BUN (6.0-23.0) mg/dL Creatinine (0.6-1.5) mg/dL Est Cr Clr Drug Dosing mL/min Estimated GFR (MDRD) ml/min Glucose (60-110) mg/dL Calcium (8.8-10.8) mg/dL Total Bilirubin (0.1-1.5) mg/dL AST (5-40) IU/L ALT (8-54) IU/L Alkaline Phosphatase (40-150) Total Protein (6.0-8.0) g/dL Albumin (3.5-5.0) g/dL Globulin (2.0-3.5) g/dL Albumin/Globulin Ratio (1.3-2.8) Departure - Departure Time of Disposition: 13:48 Condition: good
[2017-01-24 11:36] LABS: CHLORIDE,CL 107 mmol/L (98-110); SODIUM,NA 142 mmol/L (136-146)
[2017-01-24] MEDS ORDERED: Iopamidol 755 Mg/ML 100 ML Bottle IVPUSH STA (12:11)
[2017-01-24 13:57] VITALS: BP 147/95
--- NOTE | 2017-01-26 16:51 | CR ---
EXAM DATE: 01/24/17 PATIENT'S AGE: 51 Patient: YAIMA WHITMORE Facility: [place], [place] Site . Site : 1965 Study: XRay Chest [id number]/25/2017 11:34:14 AM Ordering Physician: Doctor Fernandez Final Report: HISTORY: Chest pain. TECHNIQUE: Two views of the chest. COMPARISON: 01/07/2017. FINDINGS: Cardiac size within normal limits. No pulmonary vascular redistribution. There is a small area of increased opacity within the right chest adjacent right heart border which could reflect an area of increased atelectasis or a small infiltrate. There is no acute left lung infiltrate. No pneumothorax or significant pleural effusion. Stent within the right upper quadrant. IMPRESSION: Small area of increased opacity adjacent to the right heart border which may relate to a small area of increased atelectasis or a small infiltrate. Dictated by Andrei Arriola MD @ 01/24/2017 11:59:05 AM Dictated by: Andrei Arriola MD @ 01/24/2017 11:59:11 (Electronic Signature) Report Signed by Proxy and Original Signed Document filed in the Medical Record. [facility]
--- NOTE | 2017-01-26 16:59 | CT ---
EXAM DATE: 01/24/17 PATIENT'S AGE: 51 Patient: YAIMA WHITMORE Facility: [place], [place] Site . Site : 1965 Study: CT Chest Angio [id number]/25/2017 12:30:49 PM Ordering Physician: Leigh Esparza Final Report: HISTORY: Chest pain, positive D-dimer. TECHNIQUE: Intravenous contrast enhanced CT of the chest. 75 mL of Isovue-370 contrast administered intravenously. COMPARISON: No prior chest CT. FINDINGS: There is no acute pulmonary embolism. No thoracic aortic aneurysm or dissection. No significant pericardial effusion. No enlarged mediastinal or hilar lymph nodes. There is a small right-sided pleural effusion. The areas of increased opacity within the right lower lobe and lingula more likely relate to areas of atelectasis. Small infiltrates are a secondary consideration. There is mild dependent atelectasis within the left lower lobe. No pneumothorax. Degenerative changes of the thoracic spine. IMPRESSION: 1. No acute pulmonary embolism. 2. Small right-sided pleural effusion. 3. Areas of opacity within the right lower lobe and right middle lobe are favored to represent areas of atelectasis. Small infiltrates would be a less likely consideration. 4. Mild dependent atelectasis within the left lower lobe. Dictated by Andrei Arriola MD @ 01/24/2017 1:07:34 PM Dictated by: Andrei Arriola MD @ 01/24/2017 13:07:46 (Electronic Signature) Report Signed by Proxy and Original Signed Document filed in the Medical Record. [facility] CENTERCarlos
--- NOTE | 2017-01-26 17:00 | CT ---
EXAM DATE: 01/24/17 PATIENT'S AGE: 51 Patient: YAIMA WHITMORE Facility: [place], [place] Site . Site : 1965 Study: CT Abdomen/Pelvis [id number]/25/2017 12:31:52 PM Ordering Physician: Leigh Esparza Final Report: HISTORY: Abdominal pain. Postoperative. TECHNIQUE: Intravenous contrast enhanced CT of the abdomen and pelvis. 75 mL of Isovue 370 intravenous contrast administered. COMPARISON: CT 01/08/2017. FINDINGS: The patient is status post cholecystectomy. There is a biliary stent in place. There is no significant biliary ductal dilatation. There are a few sub cm low- density lesions within the posterior segment of the right hepatic lobe seen on image #43 and 46 for example which are too small to characterize. These were not clearly seen previously though potentially related to differences in technique. There is an additional 1.4 cm low-density lesion within the right hepatic lobe close to the portal vein on image #45 which similarly appears new. This could relate to an area of focal edema or fatty infiltration. A cyst or other liver mass would typically not develop this rapidly. . Spleen size within limits. There is a 1.5 cm new right adrenal gland nodule on image #46. Left adrenal gland is normal. There is no focal pancreatic abnormality or acute peripancreatic inflammatory change. Symmetric nephrograms. No renal mass or hydronephrosis. Urinary bladder is not well distended though appears grossly unremarkable. . There is no small bowel obstruction. No appendicitis. Colonic diverticulosis without acute diverticulitis. There is no localized fluid collection. No free air. No abdominal aortic aneurysm. Duplicated IVC is present. . Degenerative changes of the hips, sacroiliac joints within the spine. . Chest CT reported separately. IMPRESSION: 1. Changes of cholecystectomy. Biliary stent is in place. No biliary ductal dilatation. 2. Several low-density liver lesions which were not clearly seen on the recent prior CT. The smallest lesions may have been inapparent at the prior CT for technical reasons. A 1.4 cm lesion within the right hepatic lobe close to the portal vein could relate to an area of focal edema or possible focal fatty infiltration. A cyst or other liver mass would typically not develop this rapidly. Consider a followup CT to determine stability or liver MRI to further characterize. 3. No localized abdominal or pelvic fluid collection. 4. New small right adrenal gland nodule. 5. Mild diverticulosis without diverticulitis. Dictated by Andrei Arriola MD @ 01/24/2017 1:19:25 PM Dictated by: Andrei Arriola MD @ 01/24/2017 13:19:31 (Electronic Signature) Report Signed by Proxy and Original Signed Document filed in the Medical Record. [id number]
== END 2017-01-24 13:57 | disposition home or self-care (01) ==
LOC: MW.ED 10:27
DX: R07.81 Pleurodynia (principal); J98.11 Atelectasis
CPT/HCPCS: 36415; 71020; 71275; 74177; 80053; 83605; 85027; 85379; 93005; 99285; A9270; Q9967; 99284

== ENCOUNTER 2018-11-09 15:33 | Observation (INO) | payer OTHER ==
[2018-11-09] MEDS ORDERED: Sodium Chloride 0.9% 10 ML Syringe FLUSH PRN (15:50)
[2018-11-09] MEDS ORDERED: Sodium Chloride 0.9% 2.5 ML Syringe FLUSH PRN (15:50)
--- NOTE | 2018-11-09 15:52 | EDM.PDOC ---
ED HPI GENERAL MEDICAL PROBLEM - General Chief Complaint: Chest Pain Stated Complaint: CHEST PAIN Time Seen by Provider: 11/09/18 15:42 Source of Information: Reports: Patient History Limitations: Reports: No Limitations - History of Present Illness INITIAL COMMENTS - FREE TEXT/NARRATIVE: History of present illness: []Patient has had symptoms for the last 3 weeks but today while he was walking into [employer] he developed left-sided chest pain at noon 3-5 minutes. Symptoms such as sweating, dizziness, lightheadedness or increase of shortness of breath. Patient went to work and take it easy but he continued to have episodes of the left sided chest pain lasting 3-5 minutes. Review of systems: As per history of present illness and below otherwise all systems reviewed and negative. Past medical history: As per history of present illness and as reviewed below otherwise noncontributory. Surgical history: As per history of present illness and as reviewed below otherwise noncontributory. Social history: No reported history of drug or alcohol abuse. Family history: As per history of present illness and as reviewed below otherwise noncontributory. Physical exam: General: Well developed, well nourished in NAD HEENT: Atraumatic, normocephalic, pupils reactive, negative for conjunctival pallor or scleral icterus, mucous membranes moist, throat clear, neck supple, nontender, trachea midline. Lungs: Clear to auscultation, breath sounds equal bilaterally, chest nontender. Heart: S1S2, regular, negative for clicks, rubs, or JVD. Abdomen: NABS, Soft, nondistended, nontender. Negative for masses or hepatosplenomegaly. Negative for costovertebral tenderness. Pelvis: Stable nontender. Genitourinary: Deferred. Rectal: Deferred. Extremities: Atraumatic, negative for cords or calf pain. Neurovascular unremarkable. Neuro: Awake, alert, oriented. Cranial nerves II through XII unremarkable. Cerebellum unremarkable. Motor and sensory unremarkable throughout. Exam nonfocal. Skin:warm and dry Diagnostics: EKG, CBC, chemistry, troponin, chest x-ray Therapeutics: Aspirin, nitroglycerin ED Course: unremarkable Impression: Chest pain Prescriptions: None Plan: Admit for observation and rule out OK Definitive disposition and diagnosis as appropriate pending reevaluation and review of above. chest Pain Score (Numeric/FACES): 6 Neck Pain Score (Numeric/FACES): 8 - Related Data Allergies Allergy/AdvReac Type Severity Reaction Status Date / Time No Known Allergies Allergy Verified 11/09/18 15:41 Home Meds: Home Meds . [No Known Home Meds] 11/09/18 [History] Past Medical History HEENT History: Reports: Impaired Vision Other HEENT History: wears glasses Cardiovascular History: Reports: None Respiratory History: Reports: None Gastrointestinal History: Reports: None Genitourinary History: Reports: None Musculoskeletal History: Reports: None Neurological History: Reports: None Psychiatric History: Reports: None Endocrine/Metabolic History: Reports: None Hematologic History: Reports: None Immunologic History: Reports: None Oncologic (Cancer) History: Reports: None Dermatologic History: Reports: None - Infectious Disease History Infectious Disease History: Reports: Chicken Pox, Measles, Mumps - Past Surgical History Head Surgeries/Procedures: Reports: None HEENT Surgical History: Reports: None Cardiovascular Surgical History: Reports: None Respiratory Surgical History: Reports: None GI Surgical History: Reports: Cholecystectomy, Other (See Below) Male Surgical History: Reports: None Endocrine Surgical History: Reports: None Neurological Surgical History: Reports: C-Spine Other Neurological Surgeries/Procedures: anterior cervical disc fusion C4-C7 Musculoskeletal Surgical History: Reports: Other (See Below) Oncologic Surgical History: Reports: None Dermatological Surgical History: Reports: None Social & Family History - Family History Family Medical History: Noncontributory - Tobacco Use Smoking Status *Q: Current Every Day Smoker Years of Tobacco use: 30 Packs/Tins Daily: 1.5 - Caffeine Use Caffeine Use: Reports: Coffee - Recreational Drug Use Recreational Drug Use: No ED ROS GENERAL - Review of Systems Review Of Systems: ROS reveals no pertinent complaints other than HPI. ED EXAM, GENERAL - Physical Exam Exam: See Below (See history of present illness) Course - Vital Signs Last Recorded V/S: Last Vital Signs Temp 98.2 F 11/10/18 04:00 Pulse 66 11/10/18 04:00 Resp 19 11/10/18 04:00 BP 132/79 11/10/18 04:00 Pulse Ox 97 11/10/18 04:00 - Orders/Labs/Meds Orders: Active Orders 24 hr Category Date Time Status EKG Documentation Completion [RC] STAT Care 11/09/18 15:50 Active Sodium Chloride 0.9% [Saline Flush] Med 11/09/18 15:50 Active 10 ml FLUSH ASDIRECTED PRN Sodium Chloride 0.9% [Saline Flush] Med 11/09/18 15:50 Active 2.5 ml FLUSH ASDIRECTED PRN Saline Lock Insert [OM.PC] Stat Oth 11/09/18 15:50 Ordered Medication Orders Acetaminophen (Tylenol) 650 mg PO Q4H PRN PRN Reason: Pain (Mild 1-3)/fever Albuterol (Proventil Neb Soln) 2.5 mg NEB Q2H PRN PRN Reason: Shortness Of Breath/wheezing Docusate Sodium (Colace) 100 mg PO BID PRN PRN Reason: Constipation Enoxaparin Sodium (Lovenox) 40 mg SUBCUT Q24H FOR[facility]LY [facility], [facility]–1983 Last Admin: 11/09/18 18:24 Dose: 40 mg Ibuprofen (Motrin) 800 mg PO Q6H PRN PRN Reason: Pain (mild 1-3) Morphine Sulfate (Morphine) 2 mg IVPUSH Q2H PRN PRN Reason: Pain (severe 7-10) Stop: 11/10/18 17:23 Nicotine (Habitrol) 14 mg TRDERM DAILY FOR[facility], 1928–1983 Last Admin: 11/09/18 18:23 Dose: 14 mg Nitroglycerin (Nitrostat) 0.4 mg SL Q5M PRN PRN Reason: Chest Pain Ondansetron HCl (Zofran Odt) 4 mg PO Q4H PRN PRN Reason: nausea, able to take PO Ondansetron HCl (Zofran) 4 mg IVPUSH Q4H PRN PRN Reason: Nausea Polyethylene Glycol (Miralax) 17 gm PO DAILY PRN PRN Reason: Constipation Sodium Chloride (Saline Flush) 10 ml FLUSH ASDIRECTED PRN PRN Reason: Keep Vein Open Sodium Chloride (Saline Flush) 2.5 ml FLUSH ASDIRECTED PRN PRN Reason: Keep Vein Open Temazepam (Restoril) 15 mg PO BEDTIME PRN PRN Reason: Sleep Last Admin: 11/09/18 23:11 Dose: 15 mg Labs: Laboratory Tests 11/09/18 11/09/18 Range/Units 15:57 15:57 WBC 7.02 (4.0-11.0) K/uL RBC 4.75 (4.50-5.90) M/uL Hgb 15.4 (13.0-17.0) g/dL Hct 44.8 (38.0-50.0) % MCV 94.3 (80.0-98.0) fL MCH 32.4 H (27.0-32.0) pg MCHC 34.4 (31.0-37.0) g/dL RDW Std Deviation 44.1 (28.0-62.0) fl RDW Coeff of [place] 13 (11.0-15.0) % Plt Count 166 (150-400) K/uL MPV 11.80 (7.40-12.00) fL Neut % (Auto) 55.2 (48.0-80.0) % Lymph % (Auto) 36.3 (16.0-40.0) % [place] % (Auto) 7.3 (0.0-15.0) % Eos % (Auto) 1.1 (0.0-7.0) % Baso % (Auto) 0.1 (0.0-1.5) % Neut # (Auto) 3.9 (1.4-5.7) K/uL Lymph # (Auto) 2.6 H (0.6-2.4) K/uL [place] # (Auto) 0.5 (0.0-0.8) K/uL Eos # (Auto) 0.1 (0.0-0.7) K/uL Baso # (Auto) 0.0 (0.0-0.1) K/uL Nucleated RBC % 0.0 /100WBC Nucleated RBCs # 0 K/uL Sodium 142 (136-148) mmol/L Potassium 4.2 (3.5-5.1) mmol/L Chloride 108 H (98-107) mmol/L Carbon Dioxide 28.4 (21.0-32.0) mmol/L BUN 20 H (7.0-18.0) mg/dL Creatinine 1.0 (0.8-1.3) mg/dL Est Cr Clr Drug Dosing 84.45 mL/min Estimated GFR (MDRD) > 60.0 ml/min Glucose 113 H (74-106) mg/dL Calcium 9.1 (8.5-10.1) mg/dL Total Bilirubin 0.2 (0.2-1.0) mg/dL AST 12 L (15-37) IU/L ALT 24 (14-63) IU/L Alkaline Phosphatase 46 (46-116) U/L Troponin I < 0.050 (0.000-0.056) ng/mL Total Protein 7.0 (6.4-8.2) g/dL Albumin 3.5 (3.4-5.0) g/dL Globulin 3.5 (2.6-4.0) g/dL Albumin/Globulin Ratio 1.0 (0.9-1.6) Meds: Medications Generic Name Dose Route Start Last Admin Trade Name Freq PRN Reason Stop Dose Admin Acetaminophen 650 mg 11/09/18 17:22 Tylenol PO Q4H PRN Pain (Mild 1-3)/fever Albuterol 2.5 mg 11/09/18 17:22 Proventil Neb Soln NEB Q2H PRN Shortness Of Breath/wheezing Docusate Sodium 100 mg 11/09/18 17:22 Colace PO BID PRN Constipation Enoxaparin Sodium 40 mg 11/09/18 17:30 11/09/18 18:24 Lovenox SUBCUT 40 mg Q24H DIAMANTE Administration Ibuprofen 800 mg 11/09/18 17:22 Motrin PO Q6H PRN Pain (mild 1-3) Morphine Sulfate 2 mg 11/09/18 17:22 Morphine IVPUSH 11/10/18 17:23 Q2H PRN Pain (severe 7-10) Nicotine 14 mg 11/09/18 17:30 11/09/18 18:23 Habitrol TRDERM 14 mg DAILY DIAMANTE Administration Nitroglycerin 0.4 mg 11/09/18 17:25 Nitrostat SL Q5M PRN Chest Pain Ondansetron HCl 4 mg 11/09/18 17:22 Zofran Odt PO Q4H PRN nausea, able to take PO Ondansetron HCl 4 mg 11/09/18 17:22 Zofran IVPUSH Q4H PRN Nausea Polyethylene Glycol 17 gm 11/09/18 17:22 Miralax PO DAILY PRN Constipation Sodium Chloride 10 ml 11/09/18 15:50 Saline Flush FLUSH ASDIRECTED PRN Keep Vein Open Sodium Chloride 2.5 ml 11/09/18 15:50 Saline Flush FLUSH ASDIRECTED PRN Keep Vein Open Temazepam 15 mg 11/09/18 17:22 11/09/18 23:11 Restoril PO 15 mg BEDTIME PRN Administration Sleep Discontinued Medications Generic Name Dose Route Start Last Admin Trade Name Coy PRN Reason Stop Dose Admin Aspirin 324 mg 11/09/18 17:25 11/09/18 18:23 Aspirin PO 11/09/18 17:26 324 mg ONETIME ONE Administration Departure - Departure Time of Disposition: 17:30 Disposition: Admitted As Inpatient 65 Condition: Good Clinical Impression: Chest pain Qualifiers: Chest pain type: unspecified Qualified Code(s): R07.9 - Chest pain, unspecified - My Orders Last 24 Hours: My Active Orders 11/09/18 15:50 EKG Documentation Completion [RC] STAT Sodium Chloride 0.9% [Saline Flush] 10 ml FLUSH ASDIRECTED PRN Sodium Chloride 0.9% [Saline Flush] 2.5 ml FLUSH ASDIRECTED PRN Saline Lock Insert [OM.PC] Stat - Assessment/Plan Last 24 Hours: My Active Orders 11/09/18 15:50 EKG Documentation Completion [RC] STAT Sodium Chloride 0.9% [Saline Flush] 10 ml FLUSH ASDIRECTED PRN Sodium Chloride 0.9% [Saline Flush] 2.5 ml FLUSH ASDIRECTED PRN Saline Lock Insert [OM.PC] Stat
--- NOTE | 2018-11-09 16:18 | CR ---
EXAMINATION: Portable chest radiograph. HISTORY: Shortness of breath. FINDINGS: The trachea is midline. The cardiomediastinal silhouette is within normal limits. No pulmonary infiltrates, effusions or pneumothorax. Osseous structures appear unremarkable. IMPRESSION: No acute cardiopulmonary process.
[2018-11-09 16:33] LABS: CHLORIDE,CL 108 mmol/L (98-107); SODIUM,NA 142 mmol/L (136-148)
[2018-11-09] MEDS ORDERED: Morphine 10 MG/ML Syringe IVPUSH PRN (17:22)
[2018-11-09] MEDS ORDERED: Temazepam 15 MG Cap PO PRN (17:22)
[2018-11-09] MEDS ORDERED: Ondansetron 4 MG Tab.DIS PO PRN (17:22)
[2018-11-09] MEDS ORDERED: Albuterol 0.083% 2.5 MG/3 ML Neb Soln NEB PRN (17:22)
[2018-11-09] MEDS ORDERED: Acetaminophen 325 MG Tab PO PRN (17:22)
[2018-11-09] MEDS ORDERED: Ondansetron 4 MG/2 ML SDV IVPUSH PRN (17:22)
[2018-11-09] MEDS ORDERED: Ibuprofen 800 MG Tab PO PRN (17:22)
[2018-11-09] MEDS ORDERED: Docusate Sodium 100 MG Cap PO PRN (17:22)
[2018-11-09] MEDS ORDERED: Polyethylene Glycol 3350 Powder 17 GM Packet PO PRN (17:22)
[2018-11-09] MEDS ORDERED: Nitroglycerin 0.4 MG Tab.SL SL PRN (17:25)
[2018-11-09] MEDS ORDERED: Aspirin 81 MG Tab.Chew PO ONE (17:25)
[2018-11-09] MEDS ORDERED: Enoxaparin 40 MG/0.4 ML Syringe SUBCUT SCH (17:30)
[2018-11-09] MEDS ORDERED: Nicotine 14 MG/24 Hr Patch TRDERM SCH (17:30)
--- NOTE | 2018-11-09 17:40 | PCM.HP ---
<Joseph Kane Best - Last Filed: 11/09/18 17:32> H&P History of Present Illness - General Date of Service: 11/09/18 Admit Problem/Dx: Admission Diagnosis/Problem Admission Diagnosis/Problem Chest pain - History of Present Illness Initial Comments - Free Text/Narative: César Johnson is a 53 y/o male presenting to the ED complaining of acute left chest pain. According to the patient, he was walking in [place] when he suddenly felt a sharp left sided chest pain that lasted for few minutes. In addition, he states he did not feel well during that episode. No diaphoresis or radiation to neck or arm. No nausea or vomiting. Of note, he does smoke about half a pack a day. There is a family history of heart disease. In addition , the past few days he has been carrying heavy items since he is moving houses. Denies any abdominal pain, dysuria, diarrhea. No pedal edema. chest Pain Score (Numeric/FACES): 6 - Related Data Allergies/Adverse Reactions: Allergies Allergy/AdvReac Type Severity Reaction Status Date / Time No Known Allergies Allergy Verified 11/09/18 15:41 Home Medications: Home Meds . [No Known Home Meds] 11/09/18 [History] Past Medical History HEENT History: Reports: Impaired Vision Other HEENT History: wears glasses Cardiovascular History: Reports: None Respiratory History: Reports: None Gastrointestinal History: Reports: None Genitourinary History: Reports: None Musculoskeletal History: Reports: None Neurological History: Reports: None Psychiatric History: Reports: None Endocrine/Metabolic History: Reports: None Hematologic History: Reports: None Immunologic History: Reports: None Oncologic (Cancer) History: Reports: None Dermatologic History: Reports: None - Infectious Disease History Infectious Disease History: Reports: Chicken Pox, Measles, Mumps - Past Surgical History Head Surgeries/Procedures: Reports: None HEENT Surgical History: Reports: None Cardiovascular Surgical History: Reports: None Respiratory Surgical History: Reports: None GI Surgical History: Reports: Cholecystectomy, Other (See Below) Male Surgical History: Reports: None Endocrine Surgical History: Reports: None Neurological Surgical History: Reports: C-Spine Other Neurological Surgeries/Procedures: anterior cervical disc fusion C4-C7 Musculoskeletal Surgical History: Reports: Other (See Below) Oncologic Surgical History: Reports: None Dermatological Surgical History: Reports: None Social & Family History - Family History Family Medical History: Noncontributory - Tobacco Use Smoking Status *Q: Current Every Day Smoker Years of Tobacco use: 30 Packs/Tins Daily: 1.5 - Caffeine Use Caffeine Use: Reports: Coffee - Recreational Drug Use Recreational Drug Use: No H&P Review of Systems - Review of Systems: Review Of Systems: ROS reveals no pertinent complaints other than HPI. Exam - Exam Exam: See Below - Vital Signs Vital Signs: Last Vital Signs Temp 36.4 C 11/09/18 15:42 Pulse 72 11/09/18 16:45 Resp 18 11/09/18 16:45 BP 125/83 11/09/18 16:45 Pulse Ox 95 11/09/18 16:45 Weight: 74.843 kg - Exam General: Alert, Oriented, Cooperative HEENT: Mucosa Moist & [place] Lungs: Clear to Auscultation, Normal Respiratory Effort Cardiovascular: Regular Rate, Regular Rhythm GI/Abdominal Exam: Normal Bowel Sounds, Soft, Non-Tender, No Distention, No Mass Back Exam: Normal Inspection. No: CVA Tenderness (L), CVA Tenderness (R) Extremities: Normal Inspection, Non-Tender, No Pedal Edema Skin: Warm, Dry Neurological: Cranial Nerves Intact Neuro Extensive - Mental Status: Alert, Oriented x3 - Patient Data Lab Results Last 24 hrs: Laboratory Results - last 24 hr 11/09/18 11/09/18 Range/Units 15:57 15:57 WBC 7.02 (4.0-11.0) K/uL RBC 4.75 (4.50-5.90) M/uL Hgb 15.4 (13.0-17.0) g/dL Hct 44.8 (38.0-50.0) % MCV 94.3 (80.0-98.0) fL MCH 32.4 H (27.0-32.0) pg MCHC 34.4 (31.0-37.0) g/dL RDW Std Deviation 44.1 (28.0-62.0) fl RDW Coeff of [place] 13 (11.0-15.0) % Plt Count 166 (150-400) K/uL MPV 11.80 (7.40-12.00) fL Neut % (Auto) 55.2 (48.0-80.0) % Lymph % (Auto) 36.3 (16.0-40.0) % [place] % (Auto) 7.3 (0.0-15.0) % Eos % (Auto) 1.1 (0.0-7.0) % Baso % (Auto) 0.1 (0.0-1.5) % Neut # (Auto) 3.9 (1.4-5.7) K/uL Lymph # (Auto) 2.6 H (0.6-2.4) K/uL [place] # (Auto) 0.5 (0.0-0.8) K/uL Eos # (Auto) 0.1 (0.0-0.7) K/uL Baso # (Auto) 0.0 (0.0-0.1) K/uL Nucleated RBC % 0.0 /100WBC Nucleated RBCs # 0 K/uL Sodium 142 (136-148) mmol/L Potassium 4.2 (3.5-5.1) mmol/L Chloride 108 H (98-107) mmol/L Carbon Dioxide 28.4 (21.0-32.0) mmol/L BUN 20 H (7.0-18.0) mg/dL Creatinine 1.0 (0.8-1.3) mg/dL Est Cr Clr Drug Dosing 84.45 mL/min Estimated GFR (MDRD) > 60.0 ml/min Glucose 113 H (74-106) mg/dL Calcium 9.1 (8.5-10.1) mg/dL Total Bilirubin 0.2 (0.2-1.0) mg/dL AST 12 L (15-37) IU/L ALT 24 (14-63) IU/L Alkaline Phosphatase 46 (46-116) U/L Troponin I < 0.050 (0.000-0.056) ng/mL Total Protein 7.0 (6.4-8.2) g/dL Albumin 3.5 (3.4-5.0) g/dL Globulin 3.5 (2.6-4.0) g/dL Albumin/Globulin Ratio 1.0 (0.9-1.6) Result Diagrams: 11/09/18 15:57 11/09/18 15:57 Problem List Initiated/Reviewed/Updated: Yes Orders Last 24hrs: Active Orders 24 hr Category Date Time Status Patient Status [ADT] Routine ADT 11/09/18 17:22 Ordered Bedrest Bathroom Privileges [RC] ASDIRECTED Care 11/09/18 17:22 Ordered Cardiac Monitoring [RC] CONTINUOUS Care 11/09/18 17:23 Ordered EKG Documentation Completion [RC] STAT Care 11/09/18 15:50 Active Oxygen Therapy [RC] PRN Care 11/09/18 17:22 Ordered RT Aerosol Therapy [RC] ASDIRECTED Care 11/09/18 17:24 Ordered VTE/DVT Education [RC] PER UNIT ROUTINE Care 11/09/18 17:22 Ordered Vital Signs [RC] Q4H Care 11/09/18 17:22 Ordered Heart Healthy Diet [DIET] Diet 11/09/18 Dinner Ordered Echo 2D wo Cont [US] Routine Exams 11/10/18 08:00 Ordered COMPREHENSIVE METABOLIC PN,CMP [CHEM] AM Lab 11/10/18 05:11 Ordered DRUG SCREEN, URINE [URCHEM] Routine Lab 11/09/18 17:31 Ordered GLYCOSYLATED HEMOGLOBIN,HGBA1C [CHEM] AM Lab 11/10/18 05:11 Ordered LIPID PANEL [CHEM] AM Lab 11/10/18 05:11 Ordered TROPONIN I [CHEM] Q6H Lab 11/09/18 23:00 Ordered TROPONIN I [CHEM] Q6H Lab 11/10/18 05:00 Ordered TSH [CHEM] AM Lab 11/10/18 05:11 Ordered UA W/MICROSCOPIC [URIN] Routine Lab 11/09/18 17:30 Ordered Acetaminophen [Tylenol] Med 11/09/18 17:22 Ordered 650 mg PO Q4H PRN Albuterol [Proventil Neb Soln] Med 11/09/18 17:22 Ordered 2.5 mg NEB Q2H PRN Docusate Sodium [Colace] Med 11/09/18 17:22 Ordered 100 mg PO BID PRN Enoxaparin [Lovenox] Med 11/09/18 17:30 Ordered 40 mg SUBCUT Q24H Ibuprofen [Motrin] Med 11/09/18 17:22 Ordered 800 mg PO Q6H PRN Morphine Med 11/09/18 17:22 Ordered 2 mg IVPUSH Q2H PRN Nicotine [Habitrol] Med 11/09/18 17:30 Ordered 14 mg TRDERM DAILY Nitroglycerin [Nitrostat] Med 11/09/18 17:25 Ordered 0.4 mg SL Q5M PRN Ondansetron [Zofran ODT] Med 11/09/18 17:22 Ordered 4 mg PO Q4H PRN Ondansetron [Zofran] Med 11/09/18 17:22 Ordered 4 mg IVPUSH Q4H PRN Polyethylene Glycol 3350 [MiraLAX] Med 11/09/18 17:22 Ordered 17 gm PO DAILY PRN Sodium Chloride 0.9% [Saline Flush] Med 11/09/18 15:50 Active 10 ml FLUSH ASDIRECTED PRN Sodium Chloride 0.9% [Saline Flush] Med 11/09/18 15:50 Active 2.5 ml FLUSH ASDIRECTED PRN Temazepam [Restoril] Med 11/09/18 17:22 Ordered 15 mg PO BEDTIME PRN Saline Lock Insert [OM.PC] Stat Oth 11/09/18 15:50 Ordered Resuscitation Status Routine Resus Stat 11/09/18 17:22 Ordered Medication Orders Acetaminophen (Tylenol) 650 mg PO Q4H PRN PRN Reason: Pain (Mild 1-3)/fever Albuterol (Proventil Neb Soln) 2.5 mg NEB Q2H PRN PRN Reason: Shortness Of Breath/wheezing Docusate Sodium (Colace) 100 mg PO BID PRN PRN Reason: Constipation Enoxaparin Sodium (Lovenox) 40 mg SUBCUT Q24H DIAMANTE Ibuprofen (Motrin) 800 mg PO Q6H PRN PRN Reason: Pain (mild 1-3) Morphine Sulfate (Morphine) 2 mg IVPUSH Q2H PRN PRN Reason: Pain (severe 7-10) Stop: 11/10/18 17:23 Nicotine (Habitrol) 14 mg TRDERM DAILY DIAMANTE Nitroglycerin (Nitrostat) 0.4 mg SL Q5M PRN PRN Reason: Chest Pain Ondansetron HCl (Zofran Odt) 4 mg PO Q4H PRN PRN Reason: nausea, able to take PO Ondansetron HCl (Zofran) 4 mg IVPUSH Q4H PRN PRN Reason: Nausea Polyethylene Glycol (Miralax) 17 gm PO DAILY PRN PRN Reason: Constipation Sodium Chloride (Saline Flush) 10 ml FLUSH ASDIRECTED PRN PRN Reason: Keep Vein Open Sodium Chloride (Saline Flush) 2.5 ml FLUSH ASDIRECTED PRN PRN Reason: Keep Vein Open Temazepam (Restoril) 15 mg PO BEDTIME PRN PRN Reason: Sleep Assessment/Plan Comment:: A: 1. Chest pain, r/o ACS 2. Tobacco abuse P: 1. Admit as observation to the medical floor. 2. Vitals, I/O per floor routine. Telemetry. 3. Activity: bed rest with bathroom privileges 4. Diet: Cardiac 5. DVT prophylaxis: Lovenox 6. Code status: FULL CODE 1. Chest pain. His chest pain seems more musculoskeletal, however, since he is a current smoker this puts him at high risk. Initial troponin was negative. Will trend troponins overnight. Ordered Aspirin, nitroglycerin and morphine PRN. Ordered Echo to be done in the morning. Will check HgA1c, lipid panel, TSH. 2. Tobacco abuse: replaced with nicotine patch. Dispo: likely tomorrow. <Rakesh Peralta - Last Filed: 11/10/18 07:20> H&P History of Present Illness - General Admit Problem/Dx: Admission Diagnosis/Problem Admission Diagnosis/Problem Chest pain I have seen and examined the patient independently of medical laboratory technicians. I have discussed the case with the resident. I agree with the assessment and plan of care outlined for this patient. Please see orders. Exam - Vital Signs Vital Signs: Last Vital Signs Temp 36.8 C 11/10/18 04:00 Pulse 66 11/10/18 04:00 Resp 19 11/10/18 04:00 BP 132/79 11/10/18 04:00 Pulse Ox 97 11/10/18 04:00 - Patient Data Lab Results Last 24 hrs: Laboratory Results - last 24 hr 11/09/18 11/09/18 11/09/18 Range/Units 15:57 15:57 22:53 WBC 7.02 (4.0-11.0) K/uL RBC 4.75 (4.50-5.90) M/uL Hgb 15.4 (13.0-17.0) g/dL Hct 44.8 (38.0-50.0) % MCV 94.3 (80.0-98.0) fL MCH 32.4 H (27.0-32.0) pg MCHC 34.4 (31.0-37.0) g/dL RDW Std Deviation 44.1 (28.0-62.0) fl RDW Coeff of [place] 13 (11.0-15.0) % Plt Count 166 (150-400) K/uL MPV 11.80 (7.40-12.00) fL Neut % (Auto) 55.2 (48.0-80.0) % Lymph % (Auto) 36.3 (16.0-40.0) % [place] % (Auto) 7.3 (0.0-15.0) % Eos % (Auto) 1.1 (0.0-7.0) % Baso % (Auto) 0.1 (0.0-1.5) % Neut # (Auto) 3.9 (1.4-5.7) K/uL Lymph # (Auto) 2.6 H (0.6-2.4) K/uL [place] # (Auto) 0.5 (0.0-0.8) K/uL Eos # (Auto) 0.1 (0.0-0.7) K/uL Baso # (Auto) 0.0 (0.0-0.1) K/uL Nucleated RBC % 0.0 /100WBC Nucleated RBCs # 0 K/uL Sodium 142 (136-148) mmol/L Potassium 4.2 (3.5-5.1) mmol/L Chloride 108 H (98-107) mmol/L Carbon Dioxide 28.4 (21.0-32.0) mmol/L BUN 20 H (7.0-18.0) mg/dL Creatinine 1.0 (0.8-1.3) mg/dL Est Cr Clr Drug Dosing 84.45 mL/min Estimated GFR (MDRD) > 60.0 ml/min Glucose 113 H (74-106) mg/dL Hemoglobin A1c (4.5-6.2) % Calcium 9.1 (8.5-10.1) mg/dL Total Bilirubin 0.2 (0.2-1.0) mg/dL AST 12 L (15-37) IU/L ALT 24 (14-63) IU/L Alkaline Phosphatase 46 (46-116) U/L Troponin I < 0.050 < 0.050 (0.000-0.056) ng/mL Total Protein 7.0 (6.4-8.2) g/dL Albumin 3.5 (3.4-5.0) g/dL Globulin 3.5 (2.6-4.0) g/dL Albumin/Globulin Ratio 1.0 (0.9-1.6) Triglycerides (0-200) mg/dL Cholesterol (50-200) mg/dL LDL Cholesterol, Calc (60-180) mg/dL VLDL Cholesterol (5-55) mg/dL HDL Cholesterol (40-60) mg/dL Cholesterol/HDL Ratio (3.3-6.0) TSH 3rd Generation (0.36-3.74) uIU/mL Urine Color Urine Appearance Urine pH (5.0-8.0) Ur Specific [place] (1.001-1.035) Urine Protein (NEGATIVE) mg/dL Urine Glucose (UA) (NEGATIVE) mg/dL Urine Ketones (NEGATIVE) mg/dL Urine Occult Blood (NEGATIVE) Urine Nitrite (NEGATIVE) Urine Bilirubin (NEGATIVE) Urine Urobilinogen (<2.0) EU/dL Ur Leukocyte Esterase (NEGATIVE) Urine RBC (0-2/HPF) Urine WBC (0-5/HPF) Ur Epithelial Cells (NONE-FEW) Urine Bacteria (NEGATIVE) Urine Mucus (NONE-MOD) Urine Opiates Screen (NEGATIVE) Ur Oxycodone Screen (NEGATIVE) Urine Methadone Screen (NEGATIVE) Ur Barbiturates Screen (NEGATIVE) Ur Phencyclidine Scrn (NEGATIVE) Ur Amphetamine Screen (NEGATIVE) U Methamphetamines Scrn (NEGATIVE) U Benzodiazepines Scrn (NEGATIVE) U Cocaine Metab Screen (NEGATIVE) U Marijuana (THC) Screen (NEGATIVE) 11/09/18 11/09/18 11/10/18 Range/Units 23:14 23:14 05:25 WBC (4.0-11.0) K/uL RBC (4.50-5.90) M/uL Hgb (13.0-17.0) g/dL Hct (38.0-50.0) % MCV (80.0-98.0) fL MCH (27.0-32.0) pg MCHC (31.0-37.0) g/dL RDW Std Deviation (28.0-62.0) fl RDW Coeff of [place] (11.0-15.0) % Plt Count (150-400) K/uL MPV (7.40-12.00) fL Neut % (Auto) (48.0-80.0) % Lymph % (Auto) (16.0-40.0) % [place] % (Auto) (0.0-15.0) % Eos % (Auto) (0.0-7.0) % Baso % (Auto) (0.0-1.5) % Neut # (Auto) (1.4-5.7) K/uL Lymph # (Auto) (0.6-2.4) K/uL [place] # (Auto) (0.0-0.8) K/uL Eos # (Auto) (0.0-0.7) K/uL Baso # (Auto) (0.0-0.1) K/uL Nucleated RBC % /100WBC Nucleated RBCs # K/uL Sodium (136-148) mmol/L Potassium (3.5-5.1) mmol/L Chloride (98-107) mmol/L Carbon Dioxide (21.0-32.0) mmol/L BUN (7.0-18.0) mg/dL Creatinine (0.8-1.3) mg/dL Est Cr Clr Drug Dosing mL/min Estimated GFR (MDRD) ml/min Glucose (74-106) mg/dL Hemoglobin A1c (4.5-6.2) % Calcium (8.5-10.1) mg/dL Total Bilirubin (0.2-1.0) mg/dL AST (15-37) IU/L ALT (14-63) IU/L Alkaline Phosphatase (46-116) U/L Troponin I < 0.050 (0.000-0.056) ng/mL Total Protein (6.4-8.2) g/dL Albumin (3.4-5.0) g/dL Globulin (2.6-4.0) g/dL Albumin/Globulin Ratio (0.9-1.6) Triglycerides (0-200) mg/dL Cholesterol (50-200) mg/dL LDL Cholesterol, Calc (60-180) mg/dL VLDL Cholesterol (5-55) mg/dL HDL Cholesterol (40-60) mg/dL Cholesterol/HDL Ratio (3.3-6.0) TSH 3rd Generation (0.36-3.74) uIU/mL Urine Color DARK YELLOW Urine Appearance CLEAR Urine pH 5.5 (5.0-8.0) Ur Specific [place] >= 1.030 (1.001-1.035) Urine Protein NEGATIVE (NEGATIVE) mg/dL Urine Glucose (UA) NEGATIVE (NEGATIVE) mg/dL Urine Ketones TRACE H (NEGATIVE) mg/dL Urine Occult Blood NEGATIVE (NEGATIVE) Urine Nitrite NEGATIVE (NEGATIVE) Urine Bilirubin NEGATIVE (NEGATIVE) Urine Urobilinogen 0.2 (<2.0) EU/dL Ur Leukocyte Esterase NEGATIVE (NEGATIVE) Urine RBC 0-1 (0-2/HPF) Urine WBC 0-1 (0-5/HPF) Ur Epithelial Cells RARE (NONE-FEW) Urine Bacteria RARE (NEGATIVE) Urine Mucus MODERATE (NONE-MOD) Urine Opiates Screen NEGATIVE (NEGATIVE) Ur Oxycodone Screen NEGATIVE (NEGATIVE) Urine Methadone Screen NEGATIVE (NEGATIVE) Ur Barbiturates Screen NEGATIVE (NEGATIVE) Ur Phencyclidine Scrn NEGATIVE (NEGATIVE) Ur Amphetamine Screen NEGATIVE (NEGATIVE) U Methamphetamines Scrn NEGATIVE (NEGATIVE) U Benzodiazepines Scrn NEGATIVE (NEGATIVE) U Cocaine Metab Screen NEGATIVE (NEGATIVE) U Marijuana (THC) Screen NEGATIVE (NEGATIVE) 11/10/18 11/10/18 Range/Units 05:25 05:25 WBC (4.0-11.0) K/uL RBC (4.50-5.90) M/uL Hgb (13.0-17.0) g/dL Hct (38.0-50.0) % MCV (80.0-98.0) fL MCH (27.0-32.0) pg MCHC (31.0-37.0) g/dL RDW Std Deviation (28.0-62.0) fl RDW Coeff of [place] (11.0-15.0) % Plt Count (150-400) K/uL MPV (7.40-12.00) fL Neut % (Auto) (48.0-80.0) % Lymph % (Auto) (16.0-40.0) % [place] % (Auto) (0.0-15.0) % Eos % (Auto) (0.0-7.0) % Baso % (Auto) (0.0-1.5) % Neut # (Auto) (1.4-5.7) K/uL Lymph # (Auto) (0.6-2.4) K/uL [place] # (Auto) (0.0-0.8) K/uL Eos # (Auto) (0.0-0.7) K/uL Baso # (Auto) (0.0-0.1) K/uL Nucleated RBC % /100WBC Nucleated RBCs # K/uL Sodium 143 (136-148) mmol/L Potassium 4.2 (3.5-5.1) mmol/L Chloride 108 H (98-107) mmol/L Carbon Dioxide 26.1 (21.0-32.0) mmol/L BUN 20 H (7.0-18.0) mg/dL Creatinine 0.9 (0.8-1.3) mg/dL Est Cr Clr Drug Dosing 93.83 mL/min Estimated GFR (MDRD) > 60.0 ml/min Glucose 109 H (74-106) mg/dL Hemoglobin A1c 6.3 H (4.5-6.2) % Calcium 9.0 (8.5-10.1) mg/dL Total Bilirubin 0.5 (0.2-1.0) mg/dL AST 13 L (15-37) IU/L ALT 22 (14-63) IU/L Alkaline Phosphatase 39 L (46-116) U/L Troponin I (0.000-0.056) ng/mL Total Protein 6.6 (6.4-8.2) g/dL Albumin 3.3 L (3.4-5.0) g/dL Globulin 3.3 (2.6-4.0) g/dL Albumin/Globulin Ratio 1.0 (0.9-1.6) Triglycerides 111 (0-200) mg/dL Cholesterol 154 (50-200) mg/dL LDL Cholesterol, Calc 96 (60-180) mg/dL VLDL Cholesterol 22 (5-55) mg/dL HDL Cholesterol 36 L (40-60) mg/dL Cholesterol/HDL Ratio 4.3 (3.3-6.0) TSH 3rd Generation 1.60 (0.36-3.74) uIU/mL Urine Color Urine Appearance Urine pH (5.0-8.0) Ur Specific [place] (1.001-1.035) Urine Protein (NEGATIVE) mg/dL Urine Glucose (UA) (NEGATIVE) mg/dL Urine Ketones (NEGATIVE) mg/dL Urine Occult Blood (NEGATIVE) Urine Nitrite (NEGATIVE) Urine Bilirubin (NEGATIVE) Urine Urobilinogen (<2.0) EU/dL Ur Leukocyte Esterase (NEGATIVE) Urine RBC (0-2/HPF) Urine WBC (0-5/HPF) Ur Epithelial Cells (NONE-FEW) Urine Bacteria (NEGATIVE) Urine Mucus (NONE-MOD) Urine Opiates Screen (NEGATIVE) Ur Oxycodone Screen (NEGATIVE) Urine Methadone Screen (NEGATIVE) Ur Barbiturates Screen (NEGATIVE) Ur Phencyclidine Scrn (NEGATIVE) Ur Amphetamine Screen (NEGATIVE) U Methamphetamines Scrn (NEGATIVE) U Benzodiazepines Scrn (NEGATIVE) U Cocaine Metab Screen (NEGATIVE) U Marijuana (THC) Screen (NEGATIVE) Result Diagrams: 11/09/18 15:57 11/10/18 05:25 Orders Last 24hrs: Active Orders 24 hr Category Date Time Status Patient Status [ADT] Routine ADT 11/09/18 17:22 Active Bedrest Bathroom Privileges [RC] ASDIRECTED Care 11/09/18 17:22 Active Cardiac Monitoring [RC] Q8H Care 11/09/18 17:23 Active EKG Documentation Completion [RC] STAT Care 11/09/18 15:50 Active Oxygen Therapy [RC] PRN Care 11/09/18 17:22 Active RT Aerosol Therapy [RC] ASDIRECTED Care 11/09/18 17:24 Active VTE/DVT Education [RC] PER UNIT ROUTINE Care 11/09/18 17:22 Active Vital Signs [RC] Q4H Care 11/09/18 17:22 Active Heart Healthy Diet [DIET] Diet 11/09/18 Dinner Active Echo 2D wo Cont [US] Routine Exams 11/10/18 08:00 Ordered Acetaminophen [Tylenol] Med 11/09/18 17:22 Active 650 mg PO Q4H PRN Albuterol [Proventil Neb Soln] Med 11/09/18 17:22 Active 2.5 mg NEB Q2H PRN Docusate Sodium [Colace] Med 11/09/18 17:22 Active 100 mg PO BID PRN Enoxaparin [Lovenox] Med 11/09/18 17:30 Active 40 mg SUBCUT Q24H Ibuprofen [Motrin] Med 11/09/18 17:22 Active 800 mg PO Q6H PRN Morphine Med 11/09/18 17:22 Active 2 mg IVPUSH Q2H PRN Nicotine [Habitrol] Med 11/09/18 17:30 Active 14 mg TRDERM DAILY Nitroglycerin [Nitrostat] Med 11/09/18 17:25 Active 0.4 mg SL Q5M PRN Ondansetron [Zofran ODT] Med 11/09/18 17:22 Active 4 mg PO Q4H PRN Ondansetron [Zofran] Med 11/09/18 17:22 Active 4 mg IVPUSH Q4H PRN Polyethylene Glycol 3350 [MiraLAX] Med 11/09/18 17:22 Active 17 gm PO DAILY PRN Sodium Chloride 0.9% [Saline Flush] Med 11/09/18 15:50 Active 10 ml FLUSH ASDIRECTED PRN Sodium Chloride 0.9% [Saline Flush] Med 11/09/18 15:50 Active 2.5 ml FLUSH ASDIRECTED PRN Temazepam [Restoril] Med 11/09/18 17:22 Active 15 mg PO BEDTIME PRN Saline Lock Insert [OM.PC] Stat Oth 11/09/18 15:50 Ordered Resuscitation Status Routine Resus Stat 11/09/18 17:22 Ordered Medication Orders Acetaminophen (Tylenol) 650 mg PO Q4H PRN PRN Reason: Pain (Mild 1-3)/fever Albuterol (Proventil Neb Soln) 2.5 mg NEB Q2H PRN PRN Reason: Shortness Of Breath/wheezing Docusate Sodium (Colace) 100 mg PO BID PRN PRN Reason: Constipation Enoxaparin Sodium (Lovenox) 40 mg SUBCUT Q24H [facility] Last Admin: 11/09/18 18:24 Dose: 40 mg Ibuprofen (Motrin) 800 mg PO Q6H PRN PRN Reason: Pain (mild 1-3) Morphine Sulfate (Morphine) 2 mg IVPUSH Q2H PRN PRN Reason: Pain (severe 7-10) Stop: 11/10/18 17:23 Nicotine (Habitrol) 14 mg TRDERM DAILY [facility] Last Admin: 11/09/18 18:23 Dose: 14 mg Nitroglycerin (Nitrostat) 0.4 mg SL Q5M PRN PRN Reason: Chest Pain Ondansetron HCl (Zofran Odt) 4 mg PO Q4H PRN PRN Reason: nausea, able to take PO Ondansetron HCl (Zofran) 4 mg IVPUSH Q4H PRN PRN Reason: Nausea Polyethylene Glycol (Miralax) 17 gm PO DAILY PRN PRN Reason: Constipation Sodium Chloride (Saline Flush) 10 ml FLUSH ASDIRECTED PRN PRN Reason: Keep Vein Open Sodium Chloride (Saline Flush) 2.5 ml FLUSH ASDIRECTED PRN PRN Reason: Keep Vein Open Temazepam (Restoril) 15 mg PO BEDTIME PRN PRN Reason: Sleep Last Admin: 11/09/18 23:11 Dose: 15 mg
[2018-11-10 05:59] LABS: HEMOGLOBIN A1C 6.3 % (4.5-6.2)
[2018-11-10 06:19] LABS: CHLORIDE,CL 108 mmol/L (98-107); SODIUM,NA 143 mmol/L (136-148)
--- NOTE | 2018-11-10 08:02 | PCM.DCSUM1 ---
<Kane Henderson - Last Filed: 11/10/18 08:21> Discharge Summary - Hospital Course Free Text/Narrative:: Admission date: 11/09/18 Discharge date: 11/10/18 Admission diagnosis: 1. Chest pain, r/o ACS 2. Tobacco abuse Discharge diagnosis: 1. Chest pain, ruled out ACS, negative troponins 2. Upper respiratory infection 3. Tobacco abuse Hospital course: César Johnson is a 53 y/o male who presented to the ER complaining of acute left sided chest pain. He was admitted for ACS rule out. Serial troponins were negative. He was symptom free during this hospitazation. His HgA1c was 6.3. He was encouraged to stop smoking. An Echo was done which results were pending at time of discharge. He was provided a script for an NM stress. In addition, nitroglycerin and azithromycin were prescribed. Follow-up: 1. Primary care provider - Discharge Data Discharge Date: 11/10/18 Discharge Disposition: Home, Self-Care 01 Condition: Good - Patient Instructions Diet: Heart Healthy Diet Activity: As Tolerated Notify Provider of: Increased Pain, Swelling and Redness, Nausea and/or Vomiting - Discharge Plan *PRESCRIPTION DRUG MONITORING PROGRAM REVIEWED*: Not Applicable *COPY OF PRESCRIPTION DRUG MONITORING REPORT IN PATIENT ALEIDA: Not Applicable Prescriptions/Med Rec: Azithromycin 500 mg PO DAILY #5 tablet Nitroglycerin [Nitrostat] 0.4 mg SL Q5M PRN #30 tab.sl PRN Reason: Chest Pain Home Medications: Home Meds Azithromycin 500 mg PO DAILY #5 tablet 11/10/18 [Rx] Nitroglycerin [Nitrostat] 0.4 mg SL Q5M PRN #30 tab.sl 11/10/18 [Rx] Patient Handouts: Exercise Stress Test, [id number], Azithromycin tablets, Nonspecific Chest Pain, [id number], Nitroglycerin sublingual tablets Referrals: [facility] [Outside] Javier Carvajal MD [Physician] - Miguel Yuen MD [Ordering Only Provider] - 11/17/18 9:30 am - Discharge Summary/Plan Comment DC Time >30 min.: No - Patient Data Vitals - Most Recent: Last Vital Signs Temp 36.8 C 11/10/18 04:00 Pulse 66 11/10/18 04:00 Resp 19 11/10/18 04:00 BP 132/79 11/10/18 04:00 Pulse Ox 97 11/10/18 04:00 Weight - Most Recent: 74.843 kg I&O - Last 24 hours: Intake & Output 11/09/18 11/10/18 11/10/18 22:59 06:59 14:59 Intake Total 620 Output Total 100 Balance 520 Lab Results - Last 24 hrs: Laboratory Results - last 24 hr 11/09/18 11/09/18 11/09/18 Range/Units 15:57 15:57 22:53 WBC 7.02 (4.0-11.0) K/uL RBC 4.75 (4.50-5.90) M/uL Hgb 15.4 (13.0-17.0) g/dL Hct 44.8 (38.0-50.0) % MCV 94.3 (80.0-98.0) fL MCH 32.4 H (27.0-32.0) pg MCHC 34.4 (31.0-37.0) g/dL RDW Std Deviation 44.1 (28.0-62.0) fl RDW Coeff of [place] 13 (11.0-15.0) % Plt Count 166 (150-400) K/uL MPV 11.80 (7.40-12.00) fL Neut % (Auto) 55.2 (48.0-80.0) % Lymph % (Auto) 36.3 (16.0-40.0) % [place] % (Auto) 7.3 (0.0-15.0) % Eos % (Auto) 1.1 (0.0-7.0) % Baso % (Auto) 0.1 (0.0-1.5) % Neut # (Auto) 3.9 (1.4-5.7) K/uL Lymph # (Auto) 2.6 H (0.6-2.4) K/uL [place] # (Auto) 0.5 (0.0-0.8) K/uL Eos # (Auto) 0.1 (0.0-0.7) K/uL Baso # (Auto) 0.0 (0.0-0.1) K/uL Nucleated RBC % 0.0 /100WBC Nucleated RBCs # 0 K/uL Sodium 142 (136-148) mmol/L Potassium 4.2 (3.5-5.1) mmol/L Chloride 108 H (98-107) mmol/L Carbon Dioxide 28.4 (21.0-32.0) mmol/L BUN 20 H (7.0-18.0) mg/dL Creatinine 1.0 (0.8-1.3) mg/dL Est Cr Clr Drug Dosing 84.45 mL/min Estimated GFR (MDRD) > 60.0 ml/min Glucose 113 H (74-106) mg/dL Hemoglobin A1c (4.5-6.2) % Calcium 9.1 (8.5-10.1) mg/dL Total Bilirubin 0.2 (0.2-1.0) mg/dL AST 12 L (15-37) IU/L ALT 24 (14-63) IU/L Alkaline Phosphatase 46 (46-116) U/L Troponin I < 0.050 < 0.050 (0.000-0.056) ng/mL Total Protein 7.0 (6.4-8.2) g/dL Albumin 3.5 (3.4-5.0) g/dL Globulin 3.5 (2.6-4.0) g/dL Albumin/Globulin Ratio 1.0 (0.9-1.6) Triglycerides (0-200) mg/dL Cholesterol (50-200) mg/dL LDL Cholesterol, Calc (60-180) mg/dL VLDL Cholesterol (5-55) mg/dL HDL Cholesterol (40-60) mg/dL Cholesterol/HDL Ratio (3.3-6.0) TSH 3rd Generation (0.36-3.74) uIU/mL Urine Color Urine Appearance Urine pH (5.0-8.0) Ur Specific [place] (1.001-1.035) Urine Protein (NEGATIVE) mg/dL Urine Glucose (UA) (NEGATIVE) mg/dL Urine Ketones (NEGATIVE) mg/dL Urine Occult Blood (NEGATIVE) Urine Nitrite (NEGATIVE) Urine Bilirubin (NEGATIVE) Urine Urobilinogen (<2.0) EU/dL Ur Leukocyte Esterase (NEGATIVE) Urine RBC (0-2/HPF) Urine WBC (0-5/HPF) Ur Epithelial Cells (NONE-FEW) Urine Bacteria (NEGATIVE) Urine Mucus (NONE-MOD) Urine Opiates Screen (NEGATIVE) Ur Oxycodone Screen (NEGATIVE) Urine Methadone Screen (NEGATIVE) Ur Barbiturates Screen (NEGATIVE) Ur Phencyclidine Scrn (NEGATIVE) Ur Amphetamine Screen (NEGATIVE) U Methamphetamines Scrn (NEGATIVE) U Benzodiazepines Scrn (NEGATIVE) U Cocaine Metab Screen (NEGATIVE) U Marijuana (THC) Screen (NEGATIVE) 11/09/18 11/09/18 11/10/18 Range/Units 23:14 23:14 05:25 WBC (4.0-11.0) K/uL RBC (4.50-5.90) M/uL Hgb (13.0-17.0) g/dL Hct (38.0-50.0) % MCV (80.0-98.0) fL MCH (27.0-32.0) pg MCHC (31.0-37.0) g/dL RDW Std Deviation (28.0-62.0) fl RDW Coeff of [place] (11.0-15.0) % Plt Count (150-400) K/uL MPV (7.40-12.00) fL Neut % (Auto) (48.0-80.0) % Lymph % (Auto) (16.0-40.0) % [place] % (Auto) (0.0-15.0) % Eos % (Auto) (0.0-7.0) % Baso % (Auto) (0.0-1.5) % Neut # (Auto) (1.4-5.7) K/uL Lymph # (Auto) (0.6-2.4) K/uL [place] # (Auto) (0.0-0.8) K/uL Eos # (Auto) (0.0-0.7) K/uL Baso # (Auto) (0.0-0.1) K/uL Nucleated RBC % /100WBC Nucleated RBCs # K/uL Sodium (136-148) mmol/L Potassium (3.5-5.1) mmol/L Chloride (98-107) mmol/L Carbon Dioxide (21.0-32.0) mmol/L BUN (7.0-18.0) mg/dL Creatinine (0.8-1.3) mg/dL Est Cr Clr Drug Dosing mL/min Estimated GFR (MDRD) ml/min Glucose (74-106) mg/dL Hemoglobin A1c (4.5-6.2) % Calcium (8.5-10.1) mg/dL Total Bilirubin (0.2-1.0) mg/dL AST (15-37) IU/L ALT (14-63) IU/L Alkaline Phosphatase (46-116) U/L Troponin I < 0.050 (0.000-0.056) ng/mL Total Protein (6.4-8.2) g/dL Albumin (3.4-5.0) g/dL Globulin (2.6-4.0) g/dL Albumin/Globulin Ratio (0.9-1.6) Triglycerides (0-200) mg/dL Cholesterol (50-200) mg/dL LDL Cholesterol, Calc (60-180) mg/dL VLDL Cholesterol (5-55) mg/dL HDL Cholesterol (40-60) mg/dL Cholesterol/HDL Ratio (3.3-6.0) TSH 3rd Generation (0.36-3.74) uIU/mL Urine Color DARK YELLOW Urine Appearance CLEAR Urine pH 5.5 (5.0-8.0) Ur Specific [place] >= 1.030 (1.001-1.035) Urine Protein NEGATIVE (NEGATIVE) mg/dL Urine Glucose (UA) NEGATIVE (NEGATIVE) mg/dL Urine Ketones TRACE H (NEGATIVE) mg/dL Urine Occult Blood NEGATIVE (NEGATIVE) Urine Nitrite NEGATIVE (NEGATIVE) Urine Bilirubin NEGATIVE (NEGATIVE) Urine Urobilinogen 0.2 (<2.0) EU/dL Ur Leukocyte Esterase NEGATIVE (NEGATIVE) Urine RBC 0-1 (0-2/HPF) Urine WBC 0-1 (0-5/HPF) Ur Epithelial Cells RARE (NONE-FEW) Urine Bacteria RARE (NEGATIVE) Urine Mucus MODERATE (NONE-MOD) Urine Opiates Screen NEGATIVE (NEGATIVE) Ur Oxycodone Screen NEGATIVE (NEGATIVE) Urine Methadone Screen NEGATIVE (NEGATIVE) Ur Barbiturates Screen NEGATIVE (NEGATIVE) Ur Phencyclidine Scrn NEGATIVE (NEGATIVE) Ur Amphetamine Screen NEGATIVE (NEGATIVE) U Methamphetamines Scrn NEGATIVE (NEGATIVE) U Benzodiazepines Scrn NEGATIVE (NEGATIVE) U Cocaine Metab Screen NEGATIVE (NEGATIVE) U Marijuana (THC) Screen NEGATIVE (NEGATIVE) 11/10/18 11/10/18 Range/Units 05:25 05:25 WBC (4.0-11.0) K/uL RBC (4.50-5.90) M/uL Hgb (13.0-17.0) g/dL Hct (38.0-50.0) % MCV (80.0-98.0) fL MCH (27.0-32.0) pg MCHC (31.0-37.0) g/dL RDW Std Deviation (28.0-62.0) fl RDW Coeff of [place] (11.0-15.0) % Plt Count (150-400) K/uL MPV (7.40-12.00) fL Neut % (Auto) (48.0-80.0) % Lymph % (Auto) (16.0-40.0) % [place] % (Auto) (0.0-15.0) % Eos % (Auto) (0.0-7.0) % Baso % (Auto) (0.0-1.5) % Neut # (Auto) (1.4-5.7) K/uL Lymph # (Auto) (0.6-2.4) K/uL [place] # (Auto) (0.0-0.8) K/uL Eos # (Auto) (0.0-0.7) K/uL Baso # (Auto) (0.0-0.1) K/uL Nucleated RBC % /100WBC Nucleated RBCs # K/uL Sodium 143 (136-148) mmol/L Potassium 4.2 (3.5-5.1) mmol/L Chloride 108 H (98-107) mmol/L Carbon Dioxide 26.1 (21.0-32.0) mmol/L BUN 20 H (7.0-18.0) mg/dL Creatinine 0.9 (0.8-1.3) mg/dL Est Cr Clr Drug Dosing 93.83 mL/min Estimated GFR (MDRD) > 60.0 ml/min Glucose 109 H (74-106) mg/dL Hemoglobin A1c 6.3 H (4.5-6.2) % Calcium 9.0 (8.5-10.1) mg/dL Total Bilirubin 0.5 (0.2-1.0) mg/dL AST 13 L (15-37) IU/L ALT 22 (14-63) IU/L Alkaline Phosphatase 39 L (46-116) U/L Troponin I (0.000-0.056) ng/mL Total Protein 6.6 (6.4-8.2) g/dL Albumin 3.3 L (3.4-5.0) g/dL Globulin 3.3 (2.6-4.0) g/dL Albumin/Globulin Ratio 1.0 (0.9-1.6) Triglycerides 111 (0-200) mg/dL Cholesterol 154 (50-200) mg/dL LDL Cholesterol, Calc 96 (60-180) mg/dL VLDL Cholesterol 22 (5-55) mg/dL HDL Cholesterol 36 L (40-60) mg/dL Cholesterol/HDL Ratio 4.3 (3.3-6.0) TSH 3rd Generation 1.60 (0.36-3.74) uIU/mL Urine Color Urine Appearance Urine pH (5.0-8.0) Ur Specific [place] (1.001-1.035) Urine Protein (NEGATIVE) mg/dL Urine Glucose (UA) (NEGATIVE) mg/dL Urine Ketones (NEGATIVE) mg/dL Urine Occult Blood (NEGATIVE) Urine Nitrite (NEGATIVE) Urine Bilirubin (NEGATIVE) Urine Urobilinogen (<2.0) EU/dL Ur Leukocyte Esterase (NEGATIVE) Urine RBC (0-2/HPF) Urine WBC (0-5/HPF) Ur Epithelial Cells (NONE-FEW) Urine Bacteria (NEGATIVE) Urine Mucus (NONE-MOD) Urine Opiates Screen (NEGATIVE) Ur Oxycodone Screen (NEGATIVE) Urine Methadone Screen (NEGATIVE) Ur Barbiturates Screen (NEGATIVE) Ur Phencyclidine Scrn (NEGATIVE) Ur Amphetamine Screen (NEGATIVE) U Methamphetamines Scrn (NEGATIVE) U Benzodiazepines Scrn (NEGATIVE) U Cocaine Metab Screen (NEGATIVE) U Marijuana (THC) Screen (NEGATIVE) Med Orders - Current: Current Medications Acetaminophen (Tylenol) 650 mg PO Q4H PRN PRN Reason: Pain (Mild 1-3)/fever Albuterol (Proventil Neb Soln) 2.5 mg NEB Q2H PRN PRN Reason: Shortness Of Breath/wheezing Docusate Sodium (Colace) 100 mg PO BID PRN PRN Reason: Constipation Enoxaparin Sodium (Lovenox) 40 mg SUBCUT Q24H DIAMANTE Last Admin: 01/08/19 18:24 Dose: 40 mg Ibuprofen (Motrin) 800 mg PO Q6H PRN PRN Reason: Pain (mild 1-3) Morphine Sulfate (Morphine) 2 mg IVPUSH Q2H PRN PRN Reason: Pain (severe 7-10) Stop: 11/10/18 17:23 Nicotine (Habitrol) 14 mg TRDERM DAILY DIAMANTE Last Admin: 11/09/18 18:23 Dose: 14 mg Nitroglycerin (Nitrostat) 0.4 mg SL Q5M PRN PRN Reason: Chest Pain Ondansetron HCl (Zofran Odt) 4 mg PO Q4H PRN PRN Reason: nausea, able to take PO Ondansetron HCl (Zofran) 4 mg IVPUSH Q4H PRN PRN Reason: Nausea Polyethylene Glycol (Miralax) 17 gm PO DAILY PRN PRN Reason: Constipation Sodium Chloride (Saline Flush) 10 ml FLUSH ASDIRECTED PRN PRN Reason: Keep Vein Open Sodium Chloride (Saline Flush) 2.5 ml FLUSH ASDIRECTED PRN PRN Reason: Keep Vein Open Temazepam (Restoril) 15 mg PO BEDTIME PRN PRN Reason: Sleep Last Admin: 11/09/18 23:11 Dose: 15 mg Discontinued Medications Aspirin (Aspirin) 324 mg PO ONETIME ONE Stop: 11/09/18 17:26 Last Admin: 11/09/18 18:23 Dose: 324 mg <Rakesh Peralta - Last Filed: 11/10/18 10:07> Discharge Summary - Hospital Course Free Text/Narrative:: I have seen and examined the patient independently of lpn medical assistant. I have discussed the case with the resident. I agree with the assessment and plan of care outlined for this patient. Please see orders. - Patient Data Vitals - Most Recent: Last Vital Signs Temp 36.5 C 11/10/18 07:30 Pulse 67 11/10/18 07:30 Resp 18 11/10/18 07:30 BP 137/80 11/10/18 07:30 Pulse Ox 95 11/10/18 07:30 I&O - Last 24 hours: Intake & Output 11/09/18 11/10/18 11/10/18 22:59 06:59 14:59 Intake Total 620 Output Total 100 Balance 520 Lab Results - Last 24 hrs: Laboratory Results - last 24 hr 11/09/18 11/09/18 11/09/18 Range/Units 15:57 15:57 22:53 WBC 7.02 (4.0-11.0) K/uL RBC 4.75 (4.50-5.90) M/uL Hgb 15.4 (13.0-17.0) g/dL Hct 44.8 (38.0-50.0) % MCV 94.3 (80.0-98.0) fL MCH 32.4 H (27.0-32.0) pg MCHC 34.4 (31.0-37.0) g/dL RDW Std Deviation 44.1 (28.0-62.0) fl RDW Coeff of [place] 13 (11.0-15.0) % Plt Count 166 (150-400) K/uL MPV 11.80 (7.40-12.00) fL Neut % (Auto) 55.2 (48.0-80.0) % Lymph % (Auto) 36.3 (16.0-40.0) % [place] % (Auto) 7.3 (0.0-15.0) % Eos % (Auto) 1.1 (0.0-7.0) % Baso % (Auto) 0.1 (0.0-1.5) % Neut # (Auto) 3.9 (1.4-5.7) K/uL Lymph # (Auto) 2.6 H (0.6-2.4) K/uL [place] # (Auto) 0.5 (0.0-0.8) K/uL Eos # (Auto) 0.1 (0.0-0.7) K/uL Baso # (Auto) 0.0 (0.0-0.1) K/uL Nucleated RBC % 0.0 /100WBC Nucleated RBCs # 0 K/uL Sodium 142 (136-148) mmol/L Potassium 4.2 (3.5-5.1) mmol/L Chloride 108 H (98-107) mmol/L Carbon Dioxide 28.4 (21.0-32.0) mmol/L BUN 20 H (7.0-18.0) mg/dL Creatinine 1.0 (0.8-1.3) mg/dL Est Cr Clr Drug Dosing 84.45 mL/min Estimated GFR (MDRD) > 60.0 ml/min Glucose 113 H (74-106) mg/dL Hemoglobin A1c (4.5-6.2) % Calcium 9.1 (8.5-10.1) mg/dL Total Bilirubin 0.2 (0.2-1.0) mg/dL AST 12 L (15-37) IU/L ALT 24 (14-63) IU/L Alkaline Phosphatase 46 (46-116) U/L Troponin I < 0.050 < 0.050 (0.000-0.056) ng/mL Total Protein 7.0 (6.4-8.2) g/dL Albumin 3.5 (3.4-5.0) g/dL Globulin 3.5 (2.6-4.0) g/dL Albumin/Globulin Ratio 1.0 (0.9-1.6) Triglycerides (0-200) mg/dL Cholesterol (50-200) mg/dL LDL Cholesterol, Calc (60-180) mg/dL VLDL Cholesterol (5-55) mg/dL HDL Cholesterol (40-60) mg/dL Cholesterol/HDL Ratio (3.3-6.0) TSH 3rd Generation (0.36-3.74) uIU/mL Urine Color Urine Appearance Urine pH (5.0-8.0) Ur Specific [place] (1.001-1.035) Urine Protein (NEGATIVE) mg/dL Urine Glucose (UA) (NEGATIVE) mg/dL Urine Ketones (NEGATIVE) mg/dL Urine Occult Blood (NEGATIVE) Urine Nitrite (NEGATIVE) Urine Bilirubin (NEGATIVE) Urine Urobilinogen (<2.0) EU/dL Ur Leukocyte Esterase (NEGATIVE) Urine RBC (0-2/HPF) Urine WBC (0-5/HPF) Ur Epithelial Cells (NONE-FEW) Urine Bacteria (NEGATIVE) Urine Mucus (NONE-MOD) Urine Opiates Screen (NEGATIVE) Ur Oxycodone Screen (NEGATIVE) Urine Methadone Screen (NEGATIVE) Ur Barbiturates Screen (NEGATIVE) Ur Phencyclidine Scrn (NEGATIVE) Ur Amphetamine Screen (NEGATIVE) U Methamphetamines Scrn (NEGATIVE) U Benzodiazepines Scrn (NEGATIVE) U Cocaine Metab Screen (NEGATIVE) U Marijuana (THC) Screen (NEGATIVE) 11/09/18 11/09/18 11/10/18 Range/Units 23:14 23:14 05:25 WBC (4.0-11.0) K/uL RBC (4.50-5.90) M/uL Hgb (13.0-17.0) g/dL Hct (38.0-50.0) % MCV (80.0-98.0) fL MCH (27.0-32.0) pg MCHC (31.0-37.0) g/dL RDW Std Deviation (28.0-62.0) fl RDW Coeff of [place] (11.0-15.0) % Plt Count (150-400) K/uL MPV (7.40-12.00) fL Neut % (Auto) (48.0-80.0) % Lymph % (Auto) (16.0-40.0) % [place] % (Auto) (0.0-15.0) % Eos % (Auto) (0.0-7.0) % Baso % (Auto) (0.0-1.5) % Neut # (Auto) (1.4-5.7) K/uL Lymph # (Auto) (0.6-2.4) K/uL [place] # (Auto) (0.0-0.8) K/uL Eos # (Auto) (0.0-0.7) K/uL Baso # (Auto) (0.0-0.1) K/uL Nucleated RBC % /100WBC Nucleated RBCs # K/uL Sodium (136-148) mmol/L Potassium (3.5-5.1) mmol/L Chloride (98-107) mmol/L Carbon Dioxide (21.0-32.0) mmol/L BUN (7.0-18.0) mg/dL Creatinine (0.8-1.3) mg/dL Est Cr Clr Drug Dosing mL/min Estimated GFR (MDRD) ml/min Glucose (74-106) mg/dL Hemoglobin A1c (4.5-6.2) % Calcium (8.5-10.1) mg/dL Total Bilirubin (0.2-1.0) mg/dL AST (15-37) IU/L ALT (14-63) IU/L Alkaline Phosphatase (46-116) U/L Troponin I < 0.050 (0.000-0.056) ng/mL Total Protein (6.4-8.2) g/dL Albumin (3.4-5.0) g/dL Globulin (2.6-4.0) g/dL Albumin/Globulin Ratio (0.9-1.6) Triglycerides (0-200) mg/dL Cholesterol (50-200) mg/dL LDL Cholesterol, Calc (60-180) mg/dL VLDL Cholesterol (5-55) mg/dL HDL Cholesterol (40-60) mg/dL Cholesterol/HDL Ratio (3.3-6.0) TSH 3rd Generation (0.36-3.74) uIU/mL Urine Color DARK YELLOW Urine Appearance CLEAR Urine pH 5.5 (5.0-8.0) Ur Specific [place] >= 1.030 (1.001-1.035) Urine Protein NEGATIVE (NEGATIVE) mg/dL Urine Glucose (UA) NEGATIVE (NEGATIVE) mg/dL Urine Ketones TRACE H (NEGATIVE) mg/dL Urine Occult Blood NEGATIVE (NEGATIVE) Urine Nitrite NEGATIVE (NEGATIVE) Urine Bilirubin NEGATIVE (NEGATIVE) Urine Urobilinogen 0.2 (<2.0) EU/dL Ur Leukocyte Esterase NEGATIVE (NEGATIVE) Urine RBC 0-1 (0-2/HPF) Urine WBC 0-1 (0-5/HPF) Ur Epithelial Cells RARE (NONE-FEW) Urine Bacteria RARE (NEGATIVE) Urine Mucus MODERATE (NONE-MOD) Urine Opiates Screen NEGATIVE (NEGATIVE) Ur Oxycodone Screen NEGATIVE (NEGATIVE) Urine Methadone Screen NEGATIVE (NEGATIVE) Ur Barbiturates Screen NEGATIVE (NEGATIVE) Ur Phencyclidine Scrn NEGATIVE (NEGATIVE) Ur Amphetamine Screen NEGATIVE (NEGATIVE) U Methamphetamines Scrn NEGATIVE (NEGATIVE) U Benzodiazepines Scrn NEGATIVE (NEGATIVE) U Cocaine Metab Screen NEGATIVE (NEGATIVE) U Marijuana (THC) Screen NEGATIVE (NEGATIVE) 11/10/18 11/10/18 Range/Units 05:25 05:25 WBC (4.0-11.0) K/uL RBC (4.50-5.90) M/uL Hgb (13.0-17.0) g/dL Hct (38.0-50.0) % MCV (80.0-98.0) fL MCH (27.0-32.0) pg MCHC (31.0-37.0) g/dL RDW Std Deviation (28.0-62.0) fl RDW Coeff of [place] (11.0-15.0) % Plt Count (150-400) K/uL MPV (7.40-12.00) fL Neut % (Auto) (48.0-80.0) % Lymph % (Auto) (16.0-40.0) % [place] % (Auto) (0.0-15.0) % Eos % (Auto) (0.0-7.0) % Baso % (Auto) (0.0-1.5) % Neut # (Auto) (1.4-5.7) K/uL Lymph # (Auto) (0.6-2.4) K/uL [place] # (Auto) (0.0-0.8) K/uL Eos # (Auto) (0.0-0.7) K/uL Baso # (Auto) (0.0-0.1) K/uL Nucleated RBC % /100WBC Nucleated RBCs # K/uL Sodium 143 (136-148) mmol/L Potassium 4.2 (3.5-5.1) mmol/L Chloride 108 H (98-107) mmol/L Carbon Dioxide 26.1 (21.0-32.0) mmol/L BUN 20 H (7.0-18.0) mg/dL Creatinine 0.9 (0.8-1.3) mg/dL Est Cr Clr Drug Dosing 93.83 mL/min Estimated GFR (MDRD) > 60.0 ml/min Glucose 109 H (74-106) mg/dL Hemoglobin A1c 6.3 H (4.5-6.2) % Calcium 9.0 (8.5-10.1) mg/dL Total Bilirubin 0.5 (0.2-1.0) mg/dL AST 13 L (15-37) IU/L ALT 22 (14-63) IU/L Alkaline Phosphatase 39 L (46-116) U/L Troponin I (0.000-0.056) ng/mL Total Protein 6.6 (6.4-8.2) g/dL Albumin 3.3 L (3.4-5.0) g/dL Globulin 3.3 (2.6-4.0) g/dL Albumin/Globulin Ratio 1.0 (0.9-1.6) Triglycerides 111 (0-200) mg/dL Cholesterol 154 (50-200) mg/dL LDL Cholesterol, Calc 96 (60-180) mg/dL VLDL Cholesterol 22 (5-55) mg/dL HDL Cholesterol 36 L (40-60) mg/dL Cholesterol/HDL Ratio 4.3 (3.3-6.0) TSH 3rd Generation 1.60 (0.36-3.74) uIU/mL Urine Color Urine Appearance Urine pH (5.0-8.0) Ur Specific [place] (1.001-1.035) Urine Protein (NEGATIVE) mg/dL Urine Glucose (UA) (NEGATIVE) mg/dL Urine Ketones (NEGATIVE) mg/dL Urine Occult Blood (NEGATIVE) Urine Nitrite (NEGATIVE) Urine Bilirubin (NEGATIVE) Urine Urobilinogen (<2.0) EU/dL Ur Leukocyte Esterase (NEGATIVE) Urine RBC (0-2/HPF) Urine WBC (0-5/HPF) Ur Epithelial Cells (NONE-FEW) Urine Bacteria (NEGATIVE) Urine Mucus (NONE-MOD) Urine Opiates Screen (NEGATIVE) Ur Oxycodone Screen (NEGATIVE) Urine Methadone Screen (NEGATIVE) Ur Barbiturates Screen (NEGATIVE) Ur Phencyclidine Scrn (NEGATIVE) Ur Amphetamine Screen (NEGATIVE) U Methamphetamines Scrn (NEGATIVE) U Benzodiazepines Scrn (NEGATIVE) U Cocaine Metab Screen (NEGATIVE) U Marijuana (THC) Screen (NEGATIVE) Med Orders - Current: Current Medications Acetaminophen (Tylenol) 650 mg PO Q4H PRN PRN Reason: Pain (Mild 1-3)/fever Albuterol (Proventil Neb Soln) 2.5 mg NEB Q2H PRN PRN Reason: Shortness Of Breath/wheezing Docusate Sodium (Colace) 100 mg PO BID PRN PRN Reason: Constipation Enoxaparin Sodium (Lovenox) 40 mg SUBCUT Q24H [facility] Last Admin: 11/09/18 18:24 Dose: 40 mg Ibuprofen (Motrin) 800 mg PO Q6H PRN PRN Reason: Pain (mild 1-3) Morphine Sulfate (Morphine) 2 mg IVPUSH Q2H PRN PRN Reason: Pain (severe 7-10) Stop: 11/10/18 17:23 Nicotine (Habitrol) 14 mg TRDERM DAILY [facility] Last Admin: 11/09/18 18:23 Dose: 14 mg Nitroglycerin (Nitrostat) 0.4 mg SL Q5M PRN PRN Reason: Chest Pain Ondansetron HCl (Zofran Odt) 4 mg PO Q4H PRN PRN Reason: nausea, able to take PO Ondansetron HCl (Zofran) 4 mg IVPUSH Q4H PRN PRN Reason: Nausea Polyethylene Glycol (Miralax) 17 gm PO DAILY PRN PRN Reason: Constipation Sodium Chloride (Saline Flush) 10 ml FLUSH ASDIRECTED PRN PRN Reason: Keep Vein Open Sodium Chloride (Saline Flush) 2.5 ml FLUSH ASDIRECTED PRN PRN Reason: Keep Vein Open Temazepam (Restoril) 15 mg PO BEDTIME PRN PRN Reason: Sleep Last Admin: 11/09/18 23:11 Dose: 15 mg Discontinued Medications Aspirin (Aspirin) 324 mg PO ONETIME ONE Stop: 11/09/18 17:26 Last Admin: 11/09/18 18:23 Dose: 324 mg
[2018-11-10 09:25] VITALS: BP 137/80
--- NOTE | 2018-11-11 15:38 | ECHO ---
EXAM DATE: 11/09/18 PATIENT'S AGE: 53 The echocardiogram report can be seen in this patient's EMR (Electronic Medical Record) in the Reports section. The report has also been scanned into PAC[facility]. [place]
== END 2018-11-10 09:30 | disposition home or self-care (01) ==
LOC: MW.ED 15:33 → MW.MS 16:48
PROVIDERS: ADMIT Internal Medicine; ATTEND Internal Medicine
DX: R07.9 Chest pain, unspecified (principal); F17.200 Nicotine dependence, unspecified, uncomplicated; J06.9 Acute upper respiratory infection, unspecified
CPT/HCPCS: 36415; 71045; 80053; 80061; 80305; 81001; 83036; 84443; 84484; 85025; 93005; 93306; 96372; 99285; A9270; G0378; J1650

== ENCOUNTER 2020-06-18 16:33 | Emergency (ER) | payer OTHER ==
--- NOTE | 2020-06-18 16:45 | EDM.PDOC ---
ED HPI GENERAL MEDICAL PROBLEM - General Chief Complaint: Back Pain or Injury Stated Complaint: LOWER BACK PAIN Time Seen by Provider: 06/18/20 16:34 Source of Information: Reports: Patient History Limitations: Reports: No Limitations - History of Present Illness INITIAL COMMENTS - FREE TEXT/NARRATIVE: HISTORY AND PHYSICAL: History of present illness: Patient is a 55-year-old male who presents to the emergency room with complaints of low back pain that radiates down his right leg. This is a work-related injury that occurred on 06/06/2020 while he was working in [employer]. He states he stepped off a tailgate and fell hitting his back. He was evaluated through [facility] in [place]. He had imaging and was told it was a muscular strain. He had follow-up at the [facility] the following day and had a CT scan on 06/14/2020. He was given a prescription for Toradol and tramadol, states the pain has not improved. Was unable to get in to the [facility] today, decided to come to the emergency room for evaluation. He states that [facility] is requesting he have a referral to get an MRI done as outpatient. He denies any new injury, trauma or falls. He denies any urinary or fecal incontinence. Denies any weakness, numbness, tingling or saddle paresthesia. Offers no other systemic complaints. Review of systems: As per history of present illness and below otherwise all systems reviewed and negative. Past medical history: As per history of present illness and as reviewed below otherwise noncontributory. Surgical history: As per history of present illness and as reviewed below otherwise noncontributory. Social history: See social history for further information Family history: As per history of present illness and as reviewed below otherwise noncontributory. Physical exam: General: Well developed and well nourished. Alert and orientated x 3. Nontoxic in appearance and in no acute distress. Vital signs are stable and have been reviewed by me. Nursing notes were reviewed. HEENT: Atraumatic, normocephalic, pupils equal and reactive bilaterally, negative for conjunctival pallor or scleral icterus, mucous membranes moist, TMs normal bilaterally, throat clear, neck supple, nontender, trachea midline. No drooling or trismus noted. No meningeal signs. No hot potato voice noted. Lungs: Clear to auscultation, breath sounds equal bilaterally, chest nontender. Normal work of breathing, no accessory muscles used. Heart: S1S2, regular rate and rhythm without overt murmur Abdomen: Soft, nondistended, nontender. Negative for masses or hepatosplenomegaly. Negative for costovertebral tenderness. Pelvis: Stable nontender. C-spine/Back: No pinpoint vertebral tenderness upon palpation. No crepitus, step-offs or obvious deformities. Paraspinous muscular tenderness to the right lumbar region going into the glutes and down the posterior thigh patient is ambulatory into the emergency room without difficulty or deficit. Able to rock back on heels and walk on toes. Denies any urinary or fecal incontinence. Denies any numbness, tingling or saddle paresthesia. No concerns of serious infection, fracture or cord compression, or cauda equina syndrome. Deep tendon reflexes brisk bilaterally. Skin: Intact, warm, dry. No lesions or rashes noted. Hematologic: No petechiae or purpra. Mucosa appropriate color and normal nail bed color and refill. Extremities: Atraumatic, moves all extremities per self without difficulty or deficits, negative for cords or calf pain. Neurovascular unremarkable. Neuro: Awake, alert, oriented. Cranial nerves II through XII unremarkable. Cerebellum unremarkable. Motor and sensory unremarkable throughout. Exam nonfocal. Psychiatric: Mood and affect are appropriate. Normal thought process. Answering questions appropriately. Notes: My physical exam is within normal limits. He has full range of motion and able to perform all tasks without any difficulty or deficits. He declines wanting any further diagnostics that are available through the emergency room. He does request a referral for outpatient MRI, he has been having difficulty through his primary care provider and the [facility] building getting this set up stating "I feel like were playing phone tag". We discussed signs and symptoms that would prompt them to return to the Emergency Department. Medication, follow up and supportive care measures were reviewed and discussed. Voices understanding and is agreeable to plan of care. Denies any further questions or concerns at this time. Diagnostics: Declines Impression: Lumbar back pain with sciatica Plan: 1. Today your physical exam was normal. We always encourage you to follow up with your primary care provider or recommended specialist in the next few days for re-evaluation and further care/management. If your symptoms should worsen, new symptoms develop or any of the signs and symptoms we discussed should arise please return to the emergency room or call 911 (if needed). 2. When resting please lay on a flat firm surface. Limit your immobility to prevent muscle stiffness. Get up to ambulate/move around/gentle stretching multiple times throughout the day. May alternate heat and ice to the painful areas 3. Tylenol and/or Ibuprofen as needed for back pain. Mclean for moderate to severe pain, this medication may cause drowsiness a do not take it will driving her needing to be functioning outside of the house. Definitive disposition and diagnosis as appropriate pending reevaluation and review of above. lower back, right leg Pain Score (Numeric/FACES): 8 - Related Data Allergies Allergy/AdvReac Type Severity Reaction Status Date / Time No Known Allergies Allergy Verified 06/18/20 16:41 Home Meds: Home Meds Acetaminophen/HYDROcodone [Mclean 325-5 MG] 1 dose PO Q4H #20 tablet 06/18/20 [Rx] Ketorolac [Toradol] 10 mg PO TID PRN 06/18/20 [History] predniSONE [Prednisone] 40 mg PO DAILY 4 Days #8 tablet 06/18/20 [Rx] traMADol HCl [Tramadol HCl] 50 mg PO Q8HR PRN 06/18/20 [History] Past Medical History HEENT History: Reports: Impaired Vision Other HEENT History: wears glasses Cardiovascular History: Reports: None Respiratory History: Reports: None Gastrointestinal History: Reports: None Genitourinary History: Reports: None Musculoskeletal History: Reports: None Neurological History: Reports: None Psychiatric History: Reports: None Endocrine/Metabolic History: Reports: None Hematologic History: Reports: None Immunologic History: Reports: None Oncologic (Cancer) History: Reports: None Dermatologic History: Reports: None - Infectious Disease History Infectious Disease History: Reports: Chicken Pox, Measles, Mumps - Past Surgical History Head Surgeries/Procedures: Reports: None HEENT Surgical History: Reports: None Cardiovascular Surgical History: Reports: None Respiratory Surgical History: Reports: None GI Surgical History: Reports: Cholecystectomy, Other (See Below) Male Surgical History: Reports: None Endocrine Surgical History: Reports: None Neurological Surgical History: Reports: C-Spine Other Neurological Surgeries/Procedures: anterior cervical disc fusion C4-C7 Musculoskeletal Surgical History: Reports: Other (See Below) Oncologic Surgical History: Reports: None Dermatological Surgical History: Reports: None Social & Family History - Family History Family Medical History: Noncontributory - Caffeine Use Caffeine Use: Reports: Coffee Caffeine Use Comment: 3 cups of coffee per day ED ROS GENERAL - Review of Systems Review Of Systems: Comprehensive ROS is negative, except as noted in HPI. ED EXAM,LOWER BACK PAIN/INJURY - Physical Exam Exam: See Below (See dictation) Course - Vital Signs Last Recorded V/S: Last Vital Signs Temp 97.5 F 06/18/20 17:56 Pulse 85 06/18/20 17:56 Resp 16 06/18/20 17:56 BP 149/100 H 06/18/20 17:56 Pulse Ox 95 06/18/20 17:56 - Orders/Labs/Meds Meds: Medications Discontinued Medications Generic Name Dose Route Start Last Admin Trade Name Coy PRN Reason Stop Dose Admin Hydrocodone Bitart/Acetaminophen 1 tab 06/18/20 16:55 06/18/20 17:14 Mclean 325-10 Mg PO 06/18/20 16:56 1 tab ONETIME ONE Administration Prednisone 40 mg 06/18/20 16:55 06/18/20 17:14 Prednisone PO 06/18/20 16:56 40 mg ONETIME ONE Administration Departure - Departure Time of Disposition: 17:00 Disposition: Home, Self-Care 01 Clinical Impression: Back pain of lumbar region with sciatica - Discharge Information Prescriptions: Acetaminophen/HYDROcodone [Mclean 325-5 MG] 1 dose PO Q4H #20 tablet predniSONE [Prednisone] 40 mg PO DAILY 4 Days #8 tablet Instructions: Sciatica, [id number] Referrals: Javier Carvajal MD [Primary Care Provider] - Forms: ED Department Discharge Additional Instructions: The following information is given to patients seen in the emergency department who are being discharged to home. This information is to outline your options for follow-up care. We provide all patients seen in our emergency department with a follow-up referral. The need for follow-up, as well as the timing and circumstances, are variable depending upon the specifics of your emergency department visit. If you don't have a primary care physician on staff, we will provide you with a referral. We always advise you to contact your personal physician following an emergency department visit to inform them of the circumstance of the visit and for follow-up with them and/or the need for any referrals to a consulting specialist. The emergency department will also refer you to a specialist when appropriate. This referral assures that you have the opportunity for follow-up care with a specialist. All of these measure are taken in an effort to provide you with optimal care, which includes your follow-up. Under all circumstances we always encourage you to contact your private physician who remains a resource for coordinating your care. When calling for follow-up care, please make the office aware that this follow-up is from your recent emergency room visit. If for any reason you are refused follow-up, please contact the [facility] Emergency Department at and asked to speak to the emergency department charge nurse. [facility] [address] [place] [id number] [id number] Thank you for choosing the [facility] emergency department in [place] for your medical needs today. It was a pleasure caring for you. Today you were seen in the emergency department for back pain and pain management. MRI outpatient been ordered for you. Please call the radiology department tomorrow to set up a time. These results will be given to Dr. Carvajal and will need to be followed up with by him. 1. Today your physical exam was normal. We always encourage you to follow up with your primary care provider or recommended specialist in the next few days for re-evaluation and further care/management. If your symptoms should worsen, new symptoms develop or any of the signs and symptoms we discussed should arise please return to the emergency room or call 911 (if needed). 2. When resting please lay on a flat firm surface. Limit your immobility to prevent muscle stiffness. Get up to ambulate/move around/gentle stretching multiple times throughout the day. May alternate heat and ice to the painful areas 3. Tylenol and/or Ibuprofen as needed for back pain. Mclean for moderate to severe pain, this medication may cause drowsiness a do not take it will driving her needing to be functioning outside of the house.
[2020-06-18] MEDS ORDERED: predniSONE 20 MG Tab PO ONE (16:55)
[2020-06-18] MEDS ORDERED: Acetaminophen/HYDROcodone 325-10 MG Tab PO ONE (16:55)
[2020-06-18 19:48] VITALS: BP 149/100; PULSE 85
== END 2020-06-18 17:56 | disposition home or self-care (01) ==
LOC: MW.ED 16:33
DX: M54.41 Lumbago with sciatica, right side (principal)
CPT/HCPCS: 99283; A9270